=== PATIENT | female | born 1975 | race Caucasian/White ===

== ENCOUNTER 2024-07-04 13:00 | Outpatient (RCR) | payer MEDICAID, SELFPAY ==
--- NOTE | 2024-06-20 14:40 | PTNOTE_ITS ---
PT OP Initial Eval Patient Information Outpatient Physical Therapy Treatment Date: 06/20/24 Visit Reasons: Left wrist surgery Medical Diagnosis: M18.12 G56.02 M79.642 M25.642 Treatment Dx #1: L thumb pain Treatment Dx #2: Dec L thumb ROM Start of Care: 06/20/24 Date of Onset: 09/09/23 DOS Smoking Status Smoking Status: Current every day smoker Cessation Counseling Provided: CORY was advised that quitting smoking is the single most important factor to protect the health of themselves and their family. Discussed the benefits of quitting smoking with patient. Encouraged patient to quit smoking and provided Cessation assistance materials and resources. Tobacco Use: Cigarette Years smoked: 30 Are you interested in quitting?: No Would you like additional Smoking Cessation Counseling?: No Initial Assessment Subjective: Pt is 48 yr old female s/p L CTS and apparent 1st CMC reconstruction presents with wrist splint on and reports she doesn't move the thumb much due to pain. 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 PMH: allergies Pt goal: to move the thumb and close the hand all the way Objective: Thumb AROM: Flexion: 30 deg Extension: -20 deg Wrist AROM: Flexion: 40 deg Extension: 40 deg Strength: NT Flexo Folder Gluer Operator strength: Joshua L: 20 lbs, R: 80 lbs Fist AROM: full Observation: edema of incision site and moderate TTP Assessment: Pt presents with limited L thumb and digit AROM and physical geographer strength. Pt requires skilled therapy in order to meet goals and has fair rehab potential due to high tissue irritability. Short Term and Multifocal Button Grinder Goals 1. Ind with HEP 2. Improved thumb AROM to full 3. Improved physical geographer strength to at least 35 lbs on L 4. Pt will tolerate work duties with <=4/10 L thumb pain Treatment Plan ?1. Manual therapy ? 2. Therex ? 3. Modalities as indicated, moist heat, ice, estim Frequency and Duration: 1-2x a week for 12 sessions plus evaluation Certification Dates: 06/20/24 to 09/16/24 Procedure Charges OP PT Eval Mod Complex 30 minutes: Yes
--- NOTE | 2024-06-27 09:38 | PT.ODAYNRPT ---
PT Outpatient Daily Note OP Daily Note Outpatient Physical Therapy Treatment Date: 06/27/24 Visit Reasons: Left wrist surgery Subjective: Pt reports low thumb ROM and pain Objective: See F/S for therex P x7' L hand Assessment: Weakness and pain limit L thumb ROM Plan: Continue per POC Length of Time (minutes) of Treatment: 30 Minutes Procedure Charges Therapeutic Exercise 30 minutes: Yes
--- NOTE | 2024-07-04 13:24 | PT.ODAYNRPT ---
PT Outpatient Daily Note OP Daily Note Outpatient Physical Therapy Treatment Date: 07/04/24 Visit Reasons: Left wrist surgery Subjective: Pt reports L wrist continues to be painful and tender. Objective: Please see flow sheet for ther ex list. Assessment: Pt demonstrates poor activity tolerance due to pain response. Attempted STM scar mobs but pt TTP with c/o high pain. Plan: Continue with POC. Length of Time (minutes) of Treatment: 30 Minutes Procedure Charges Therapeutic Exercise 30 minutes: Yes
== END 2024-07-12 23:59 | disposition home or self-care (01) ==
LOC: CPTX 13:00
PROVIDERS: PCP Orthopaedic Surgery; Referring Provider Orthopaedic Surgery; Visit Provider Orthopaedic Surgery
DX: M79.645 Pain in left finger(s) (principal); M25.642 Stiffness of left hand, not elsewhere classified; Z98.890 Other specified postprocedural states
CPT/HCPCS: 97110; 97162

== ENCOUNTER 2024-08-03 02:23 | Emergency (ER) | payer MEDICAID, SELFPAY ==
[2024-08-03 02:24] VITALS: BMI 27.1
[2024-08-03 02:49] VITALS: BP 118/56; PULSE 95; RESP 18; TEMP 36.4; O2SAT 96
--- NOTE | 2024-08-03 03:03 | XR_ITS ---
Examination: CT abdomen and pelvis without contrast. Coronal 3-D reconstructions. Sagittal 2-D reconstructions. Date and time of exam:August 03, 2024 0336 hrs. Indications: Onset right-sided flank pain today, history kidney stones on CT stone study 03/24/2023 CTDI: vol (mGy): 9.65 DLP: (mGycm): 572 Technique: Axial images of the abdomen have been obtained, 3 mm slice thickness Intravenous contrast material has not been administered. Low dose protocols were performed. One or more of the following dose reduction techniques were used; automated exposure control, adjustment of the mA and/or KV according to patient size, use of iterative reconstruction technique. Findings: No focal liver or splenic lesions Absent gallbladder No pancreatic mass 10 mm upper pole right renal calculus, 2 mm 1 mm lower pole left renal calculi No hydronephrosis or ureteral calculi Aorta normal size No bowel obstruction Normal appendix Retroverted uterus with irregular fundal margins Advanced degenerative disc disease L5-S1 Impression: Bilateral nonobstructing renal calculi No hydronephrosis Normal appendix Recommend pelvic sonography to assess irregular uterine fundal margins
--- NOTE | 2024-08-03 03:04 | PD.EDRME ---
Rapid Medical Screening Exam RME Arrival date/time: 08/03/24 02:23 49-year-old female with past medical history of diverticulosis and kidney stones presents emergency department complaining of right flank pain for 5 days. Chief Complaint: Back Pain/Injury Time Seen by Provider: 08/03/24 02:53 Vital signs: Vital Signs Temperature 97.6 F 08/03/24 02:49 Pulse Rate 95 08/03/24 02:49 Respiratory Rate 18 08/03/24 02:49 Blood Pressure 118/56 L 08/03/24 02:49 Pulse Oximetry (%) 96 08/03/24 02:49 Oxygen Delivery Method Room Air 08/03/24 02:49 Vital signs reviewed by provider: Yes
[2024-08-03] MEDS: KETOROLAC INJ 60 MG/2 ML VIAL 30 MG IM (03:17)
[2024-08-03 04:21] LABS: Alanine Aminotransferase 29 U/L (10-49); Albumin, Serum 4.6 gm/dL (3.5-5.0); Albumin/Globulin Ratio 1.5 (1.2-2.2); Alkaline Phosphatase 80 U/L (46-116); Anion Gap 7 (7-16); Aspartate Amino Transferase 23 U/L (0-34); BUN/Creatinine Ratio 13 Ratio (12-20); Bilirubin,Total 0.7 mg/dL (0.3-1.2); Blood Urea Nitrogen 13 mg/dL (9-23); Calcium 9.9 mg/dL (8.3-10.6); Calcium (Corrected) 9.9 mg/dL (8.5-10.1); Carbon Dioxide 27.8 mMol/L (20.0-31.0); Chloride 106 mMol/L (98-107); Globulin 3.1 gm/dL (2.3-3.5); Glucose 103 mg/dL (74-106); Lipase 26 U/L (12-53); Osmolality,Calculated 281 (275-295); Potassium 3.6 mMol/L (3.4-5.1); Sodium 141 mMol/L (136-145); Total Protein 7.7 gm/dL (5.7-8.2); eGFR > 60 See Note
[2024-08-03 04:37] LABS: Basophils % (Auto) 0 % (0-2.5); Eosinophils # (Auto) 0.3 Thou/mm3 (0.0-0.5); Eosinophils % (Auto) 3 % (0-10); Hematocrit 44.1 % (36.0-46.0); Hemoglobin 14.5 g/dL (12.0-16.0); Immature Granulocytes % (Auto) 0 % (0-0); Immature Granulocytes Auto 0.02 Thou/mm3 (0.00-0.00); Lymphocytes % (Auto) 23 % (10-50); Mean Corpuscular HGB Conc 32.9 g/dl (31.0-37.0); Mean Corpuscular Hemoglobin 30.7 pg (25.0-35.0); Mean Corpuscular Volume 93 fL (80-100); Monocytes # (Auto) 0.7 Thou/mm3 (0.0-0.8); Monocytes % (Auto) 8 % (0-12); Neutrophils # (Auto) 5.6 Thou/mm3 (1.8-7.7); Neutrophils % (Auto) 66 % (37-80); Nucleated Red Blood Cell % 0 /100 WBC (0); Platelet Count 397 Thou/mm3 (140-440); RDW Standard Deviation 47.6 fL (36.4-46.3); Red Blood Count 4.73 Miln/mm3 (4.00-5.20); White Blood Count 8.5 Thou/mm3 (3.6-11.0)
--- NOTE | 2024-08-03 04:40 | PRELIM_ITS ---
CT scan of the abdomen and pelvis without intravenous contrast (axial sections with sagittal and abiel nal reformats). August 03, 2024 0336 hours Clinical History: Right flank pain Comparison: NoneFindi ngs:Gallbladder is surgically absent. The unenhanced liver, spleen, pancreas and adrenals are unrema rkable. There is a 10 mm nonobstructive right upper pole nephrolith. There are few tiny subcentimet er nonobstructive left lower pole nephroliths. The left kidney appears slightly malrotated. Urinary bladder is of normal partially filled configuration. Uterus is retroverted. Minimal nonspecific ca lcification noted along the fundus of the uterus. There is underdistention of the stomach which limi ts evaluation. There is no bowel obstruction. Appendix is normal. There is no free intraperitoneal air or fluid. There is no abdominal or pelvic lymphadenopathy. There is a tiny fat-containing ana umbilical hernia. Visualized lung bases are clear. There is no acute osseous abnormality. There is degenerative change in the spine, SI joints and around the symphysis pubis.Impression:1. Nonobstruct jessa nephroliths bilaterally. No hydroureteronephrosis.2. No bowel obstruction. Normal appendix. Rep ort Electronically Signed By: Christopher Long 08/03/2024 4:39:38 AM [EST]
[2024-08-03 04:41] LABS: HCG,Qualitative Serum Negative
[2024-08-03 05:55] LABS: Collection Type, Urine Clean Catch
[2024-08-03 06:22] LABS: Amphetamine/Methamp Scrn,U Positive (Negative); Bacteria,Urine 1+; Barbiturate Screen,Urine Negative (Negative); Benzodiazepines Screen,Urine Negative (Negative); Benzoylecgonine Screen, Ur Negative (Negative); Bilirubin,Urine Negative (Negative); Blood,Urine 1+ (Negative); Budding Yeast,Urine Present; Clarity,Urine Hazy (Clear/Hazy); Color,Urine Yellow (Lt Yel-Yel); Culture Indicated,Urine Yes; Fentanyl Screen,Urine Negative (Negative); Glucose, Urine Negative (Negative); Ketones,Urine Negative (Negative); Leukocyte Esterase,Urine Positive (Negative); Nitrite,Urine Negative (Negative); Opiate Screen,Urine Negative (Negative); Protein,Urine 1+ (Neg - Trace); RBC,Urine 27 /hpf (0-3); Squamous Epithelial Cell,Urine 5 /hpf (0-5); THC Screen,Urine Negative (Negative); WBC,Urine 38 /hpf (0-5)
--- NOTE | 2024-08-03 06:36 | PD.EDABDPN ---
ED Abdominal Pain RME/HPI General Chief Complaint: Back Pain/Injury Stated complaint: RT FLANK PAIN/ HX OF KIDNEY STONES Time seen by provider: 08/03/24 02:53 Arrival date/time: 08/03/24 02:23 RME / HPI RME / HPI narrative: 08/03/24 02:23 49-year-old female with past medical history of diverticulosis and kidney stones presents emergency department complaining of right flank pain for 5 days. Related Data Home Medications ?Medication ?Instructions ?Recorded ?Confirmed hydrocodone 10 mg-acetaminophen 1 tab PO BID 08/21/21 08/21/21 325 mg tablet ipratropium 20 mcg-albuterol 100 1 puff inhalation Q6H 08/21/21 08/21/21 mcg/actuation mist for inhalation (Combivent Respimat) ketorolac 10 mg tablet 10 mg PO Q6HR 08/21/21 08/21/21 latanoprost 0.005 % eye drops 1 drp ophthalmic (eye) HS 08/21/21 08/21/21 magnesium oxide 400 mg (241.3 mg 200 mg PO BID 08/21/21 08/21/21 magnesium) tablet meloxicam 15 mg tablet 15 mg PO QDAY 08/21/21 08/21/21 ondansetron 4 mg disintegrating 4 mg PO Q4H 08/21/21 08/21/21 tablet tamsulosin 0.4 mg capsule 0.4 mg PO QDAY 08/21/21 08/21/21 tizanidine 2 mg tablet 2 mg PO HS 08/21/21 08/21/21 Previous Rx's ?Medication ?Instructions ?Recorded diazepam 5 mg tablet 5 mg PO TID PRN muscle spasm #9 08/21/21 tabs doxycycline hyclate 100 mg capsule 100 mg PO BID #14 caps 05/22/22 ondansetron 4 mg disintegrating 4 mg PO Q8H PRN nausea and 05/22/22 tablet vomiting #10 tabs Allergies Allergy/AdvReac Type Severity Reaction Status Date / Time amoxicillin Allergy Severe Swelling Verified 04/25/24 12:36 of Lip/Tongue/Throat erythromycin base Allergy Severe Swelling Verified 04/25/24 12:36 of Lip/Tongue/Throat Penicillins Allergy Severe Swelling Verified 04/25/24 12:36 of Lip/Tongue/Throat Course Orders Category Date Time Status CT abdomen pelvis wo con Stat Exams 08/03/24 03:03 Taken CBC Stat Lab 08/03/24 03:10 Completed CMP [Comprehensive Metabolic Panel] Stat Lab 08/03/24 03:10 Completed Drug Screen,Urine Stat Lab 08/03/24 05:45 Completed HCG,Qualitative Serum Stat Lab 08/03/24 03:10 Completed Lipase Stat Lab 08/03/24 03:10 Completed Urinalysis, C/S if Indicated Stat Lab 08/03/24 05:45 Completed Urine Culture Stat Lab 08/03/24 05:45 Received Ketorolac Inj [Toradol Inj] Med 08/03/24 03:03 Discontinued 30 mg IM X1 ONE Vital Signs Vital signs: Vital Signs Temperature 97.6 F 08/03/24 02:49 Pulse Rate 95 08/03/24 02:49 Respiratory Rate 18 08/03/24 02:49 Blood Pressure 118/56 L 08/03/24 02:49 Pulse Oximetry (%) 96 08/03/24 02:49 Oxygen Delivery Method Room Air 08/03/24 02:49 Abdominal Pain MDM Medications / Prescriptions Medication administrations:: Medication Administration History Discontinued Medications Ketorolac Tromethamine (Ketorolac Inj 60 Mg/2 Ml Vial) 30 mg IM X1 ONE Stop: 08/03/24 03:04 Last Admin: 08/03/24 03:17 Dose: 30 mg Documented By: DANIELLA Discharge Plan Prescriptions/Referrals Prescriptions/Med Rec: No Action latanoprost 0.005 % drops 1 drp OPHTHALMIC (EYE) HS Patient Comments: INSTILL ONE DROP IN EACH EYE AT BEDTIME Rx Instructions: 1 drop in each eye tizanidine 2 mg tablet 2 mg PO HS Patient Comments: TAKE 1 TO 2 TABLETS BY MOUTH EVERY DAY AT BED TIME Rx Instructions: take 1-2 tablets meloxicam 15 mg tablet 15 mg PO QDAY Patient Comments: TAKE ONE TABLET BY MOUTH EVERY DAY WITH FOOD FOR ARTHRITIS FOR INFLAMMATION hydrocodone-acetaminophen 10-325 mg tablet 1 tab PO BID Patient Comments: TAKE ONE TABLET BY MOUTH TWICE DAILY NEEDED FOR PAIN ketorolac 10 mg tablet 10 mg PO Q6HR Patient Comments: TAKE ONE TABLET BY MOUTH EVERY 6 HOURS NEEDED FOR 5 DAYS magnesium oxide 400 mg (241.3 mg magnesium) tablet 200 mg PO BID Patient Comments: TAKE 1/2 TABLET BY MOUTH TWICE DAILY Rx Instructions: take 1/2 tablet twice a day tamsulosin 0.4 mg capsule 0.4 mg PO QDAY Patient Comments: TAKE ONE CAPSULE BY MOUTH EVERY DAY FOR PROSTATE ondansetron 4 mg tablet,disintegrating 4 mg PO Q4H Rx Instructions: every 4-6 hours Combivent Respimat 20-100 mcg/actuation mist 1 puff INHALATION Q6H diazepam 5 mg tablet 5 mg PO TID PRN (Reason: muscle spasm) Qty: 9 0RF doxycycline hyclate 100 mg capsule 100 mg PO BID Qty: 14 0RF ondansetron 4 mg tablet,disintegrating 4 mg PO Q8H PRN (Reason: nausea and vomiting) Qty: 10 0RF Referrals: SQ Lane Carcamo MD [Primary Care Provider] - In 1 week Patient/Caregiver Discharge Instructions Print Language: Zimbabwean
--- NOTE | 2024-08-03 06:41 | EDNOTE_ITS ---
ED Back Injury Pain RME/HPI General Chief Complaint: Back Pain/Injury Stated Complaint: RT FLANK PAIN/ HX OF KIDNEY STONES Time Seen by Provider: 08/03/24 02:53 Arrival date/time: 08/03/24 02:23 49-year-old female with history of kidney stones and methamphetamine abuse presents emergency department complains of back pain there are no other associated symptoms or aggravating factors no other modifying factors, patient denies taking medication before coming to ER today Limitations: no limitations RME / HPI RME / HPI Narrative: 08/03/24 02:23 49-year-old female with past medical history of diverticulosis and kidney stones presents emergency department complaining of right flank pain for 5 days. Related Data Home Medications ?Medication ?Instructions ?Recorded ?Confirmed hydrocodone 10 mg-acetaminophen 1 tab PO BID 08/21/21 08/21/21 325 mg tablet ipratropium 20 mcg-albuterol 100 1 puff inhalation Q6H 08/21/21 08/21/21 mcg/actuation mist for inhalation (Combivent Respimat) ketorolac 10 mg tablet 10 mg PO Q6HR 08/21/21 08/21/21 latanoprost 0.005 % eye drops 1 drp ophthalmic (eye) HS 08/21/21 08/21/21 magnesium oxide 400 mg (241.3 mg 200 mg PO BID 08/21/21 08/21/21 magnesium) tablet meloxicam 15 mg tablet 15 mg PO QDAY 08/21/21 08/21/21 ondansetron 4 mg disintegrating 4 mg PO Q4H 08/21/21 08/21/21 tablet tamsulosin 0.4 mg capsule 0.4 mg PO QDAY 08/21/21 08/21/21 tizanidine 2 mg tablet 2 mg PO HS 08/21/21 08/21/21 Previous Rx's ?Medication ?Instructions ?Recorded diazepam 5 mg tablet 5 mg PO TID PRN muscle spasm #9 08/21/21 tabs doxycycline hyclate 100 mg capsule 100 mg PO BID #14 caps 05/22/22 ondansetron 4 mg disintegrating 4 mg PO Q8H PRN nausea and 05/22/22 tablet vomiting #10 tabs ciprofloxacin HCl 500 mg tablet 500 mg PO BID 7 days #14 tabs 08/03/24 fluconazole 150 mg tablet 150 mg PO Q3D 2 doses #2 tabs 08/03/24 ibuprofen 800 mg tablet 800 mg PO TID PRN pain #30 tabs 08/03/24 Allergies Allergy/AdvReac Type Severity Reaction Status Date / Time amoxicillin Allergy Severe Swelling Verified 04/25/24 12:36 of Lip/Tongue/Throat erythromycin base Allergy Severe Swelling Verified 04/25/24 12:36 of Lip/Tongue/Throat Penicillins Allergy Severe Swelling Verified 04/25/24 12:36 of Lip/Tongue/Throat Review of Systems Review of Systems Systems Reviewed: All systems reviewed, normal except as documented Constitutional Constitutional: Reports system reviewed and no additional complaints, except as documented, Denies fever(s) and Denies headache(s) Eyes Eyes: Reports system reviewed and no additional complaints, except as documented and Denies blurry vision ENT Ears, Nose, Mouth, and Throat: Reports system reviewed and no additional complaints, except as documented, Denies headache(s), Denies nasal congestion and Denies nasal discharge Cardiovascular Cardiovascular: Reports system reviewed and no additional complaints, except as documented, Denies chest pain and Denies dyspnea Respiratory Respiratory: Reports system reviewed and no additional complaints, except as documented, Denies chest congestion, Denies cough and Denies dyspnea Gastrointestinal Gastrointestinal: Reports system reviewed and no additional complaints, except as documented and Denies abdominal pain Musculoskeletal Musculoskeletal: Reports system reviewed and no additional complaints, except as documented and Reports back pain Integumentary/Breasts Skin/Breast: Reports system reviewed and no additional complaints, except as documented and Denies rash Neurologic Neurologic: Reports system reviewed and no additional complaints, except as documented, Reports as per HPI and Denies headache(s) Past Medical History Past Medical History NEUROLOGIC: Positive Neurological Disorders, Peripheral Neuropathy and Migraine; Negative Seizures CARDIAC: Positive Hypertension; Negative Cardiac Disorders or Congestive Heart Failure RESPIRATORY: Positive Asthma; Negative Chronic Obstructive Pulmonary Disease (COPD), Tuberculosis or Sleep Apnea GASTROINTESTINAL: Positive Gastrointestinal Disorders, Delatorre's Esophagus and Gastroesophageal Reflux Disease; Negative Hepatitis GENITOURINARY: Positive Genitourinary Disorders and Kidney Stones; Negative Renal Disease REPRODUCTIVE: Positive Previous Pregnancies MUSCULOSKELETAL: Positive Musculoskeletal Disorders, Arthritis and Degenerative Disk Disease; Negative Carpal Tunnel Syndrome ENT: Positive Glaucoma and Ear Infection ENDOCRINE: Negative Endocrine Disorders, Diabetes Mellitus Type 1 or Diabetes Mellitus Type 2 HEMATOLOGIC: Positive Blood Disorders and Anemia; Negative Sickle Cell Disease or Clotting Problems PSYCHO/SOCIAL: Positive Depression, Anxiety and Post Traumatic Stress Disorder OTHER HISTORY: Positive Chicken Pox; Negative Autoimmune Disease, Falls, Blood Transfusions, Blood Transfusion Reaction, Anesthesia Reactions, MRSA or Cancer Family History FAMILY HISTORY: Positive Family Respiratory Disorders, Family Cardiac Disorders, Family Gastrointestinal Problems, Family Cancer and Family Surgery; Negative Family Psychiatric Problems or Family Anesthesia Reaction Surgical History SURGICAL: Positive Ear Surgery, Tympanostomy Tube and Tubal Ligation; Negative Cardiac Surgery, Endocrine Surgery or Abdominal Surgery Social History SMOKING STATUS: Current some day smoker SUBSTANCE USE: former substance user and crack/cocaine (former 10 years ago) ED Exam General Limitations: Present no limitations General appearance: Present alert and in no apparent distress Head Head exam: Present atraumatic, normocephalic and normal inspection Eye Eye exam: Present normal appearance, PERRL and EOMI; Absent conjunctival injection ENT ENT exam: Present normal exam, normal oropharynx and mucous membranes moist Neck Neck exam: Present normal inspection, full ROM and trachea midline Chest Chest inspection: Present normal inspection and symmetric chest wall rise Respiratory Respiratory exam: Present normal lung sounds bilaterally; Absent respiratory distress, wheezes, stridor or accessory muscle use Cardiovascular Cardiovascular exam: Present regular rate, normal rhythm and normal heart sounds; Absent bradycardia, tachycardia or irregular rhythm Abdominal Exam Abdominal exam: Present soft and normal bowel sounds; Absent distention, tenderness, guarding, rebound or rigidity Extremities Exam Extremities exam: Present normal inspection and full ROM Back Exam Back exam: Present normal inspection and full ROM Neurological Exam Neurological exam: Present alert, oriented X3, CN II-XII intact, normal gait and reflexes normal; Absent motor sensory deficit Psychiatric Psychiatric exam: Present normal affect and normal mood Skin Skin exam: Present warm, dry, intact and normal color Course Quality Measures none Orders Category Date Time Status CT abdomen pelvis wo con Stat Exams 08/03/24 03:03 Taken CBC Stat Lab 08/03/24 03:10 Completed CMP [Comprehensive Metabolic Panel] Stat Lab 08/03/24 03:10 Completed Drug Screen,Urine Stat Lab 08/03/24 05:45 Completed HCG,Qualitative Serum Stat Lab 08/03/24 03:10 Completed Lipase Stat Lab 08/03/24 03:10 Completed Urinalysis, C/S if Indicated Stat Lab 08/03/24 05:45 Completed Urine Culture Stat Lab 08/03/24 05:45 Received Ketorolac Inj [Toradol Inj] Med 08/03/24 03:03 Discontinued 30 mg IM X1 ONE Vital Signs Vital signs: Vital Signs Temperature 97.6 F 08/03/24 02:49 Pulse Rate 95 08/03/24 02:49 Respiratory Rate 18 08/03/24 02:49 Blood Pressure 118/56 L 08/03/24 02:49 Pulse Oximetry (%) 96 08/03/24 02:49 Oxygen Delivery Method Room Air 08/03/24 02:49 o2 sat 96% r/a wnl Back Pain / Injury MDM Narrative MDM Narrative:: 49-year-old female with history of kidney stones and methamphetamine abuse presents emerged department complains of back pain there are no other associated symptoms or aggravating factors no other modifying factors, patient denies taking medication before coming to ER today On exam patient well-appearing patient does not appear ill or toxic in no acute distress Reviewed patient's lab work and CT scan Patient has no leukocytosis no ureteral calculi Urinalysis consistent with UTI and yeast infection Patient discharged home in no distress to follow-up with primary care doctor in the next 24 to 48 hours and for any worsening symptoms to return to the ER immediately Patient data External records reviewed:: [facility] previous records Clinical information provided by:: patient Social determinants that could affect healthcare access:: none Patient has the following chronic illnesses:: none How is presenting disease/condition affected by chronic disease/condition?: no chronic disease Evaluation data The following diagnostics were reviewed and interpreted by me:: lab results and radiology exam(s) Lab and/or radiology exams considered but not ordered:: labs and rad obtained Interpretation Summary: labs and rad obtained Medications / Prescriptions Medications or Prescriptions considered but not ordered:: given Medication administrations:: Medication Administration History Discontinued Medications Ketorolac Tromethamine (Ketorolac Inj 60 Mg/2 Ml Vial) 30 mg IM X1 ONE Stop: 08/03/24 03:04 Last Admin: 08/03/24 03:17 Dose: 30 mg Documented By: KF given Consultations Consultation(s) initiated? (list below): No Diagnosis Differential diagnosis back pain/injury: lumbar radiculopathy, sciatica, strain of lumbar region, renal colic and pyelonephritis Most likely diagnosis given after review of the tests above:: uti, yeast infection Admission Indicated Admission indicated?: not indicated Admission Request Was there a request for admission?: No Disposition Plan Disposition Plan: Discharge Discharge Attestation Discharge Attestation: The patient and all family members were given an opportunity to ask questions and understood the discharge instructions. Discharge instructions specifically effects, indications for sooner follow up or return to the emergency department, and the expected course of current diagnosis. Patient condition: Stable Discharge Plan Plan Patient Disposition: HOME (Self Care) Disposition Comment: Stable Prescriptions/Referrals Prescriptions/Med Rec: New ibuprofen 800 mg tablet 800 mg PO TID PRN (Reason: pain) Qty: 30 0RF ciprofloxacin HCl 500 mg tablet 500 mg PO BID 7 Days Qty: 14 0RF fluconazole 150 mg tablet 150 mg PO Q3D Qty: 2 0RF No Action latanoprost 0.005 % drops 1 drp OPHTHALMIC (EYE) HS Patient Comments: INSTILL ONE DROP IN EACH EYE AT BEDTIME Rx Instructions: 1 drop in each eye tizanidine 2 mg tablet 2 mg PO HS Patient Comments: TAKE 1 TO 2 TABLETS BY MOUTH EVERY DAY AT BED TIME Rx Instructions: take 1-2 tablets meloxicam 15 mg tablet 15 mg PO QDAY Patient Comments: TAKE ONE TABLET BY MOUTH EVERY DAY WITH FOOD FOR ARTHRITIS FOR INFLAMMATION hydrocodone-acetaminophen 10-325 mg tablet 1 tab PO BID Patient Comments: TAKE ONE TABLET BY MOUTH TWICE DAILY NEEDED FOR PAIN ketorolac 10 mg tablet 10 mg PO Q6HR Patient Comments: TAKE ONE TABLET BY MOUTH EVERY 6 HOURS NEEDED FOR 5 DAYS magnesium oxide 400 mg (241.3 mg magnesium) tablet 200 mg PO BID Patient Comments: TAKE 1/2 TABLET BY MOUTH TWICE DAILY Rx Instructions: take 1/2 tablet twice a day tamsulosin 0.4 mg capsule 0.4 mg PO QDAY Patient Comments: TAKE ONE CAPSULE BY MOUTH EVERY DAY FOR PROSTATE ondansetron 4 mg tablet,disintegrating 4 mg PO Q4H Rx Instructions: every 4-6 hours Combivent Respimat 20-100 mcg/actuation mist 1 puff INHALATION Q6H diazepam 5 mg tablet 5 mg PO TID PRN (Reason: muscle spasm) Qty: 9 0RF doxycycline hyclate 100 mg capsule 100 mg PO BID Qty: 14 0RF ondansetron 4 mg tablet,disintegrating 4 mg PO Q8H PRN (Reason: nausea and vomiting) Qty: 10 0RF Referrals: Lane Linda MD [Primary Care Provider] - In 1 week Problem List Clinical Impression: UTI (urinary tract infection), Yeast infection, Amphetamine abuse Patient/Caregiver Discharge Instructions Education Materials: When to Use Antibiotics Additional Instructions: Please follow up with your primary care doctor in the next 24-48hrs for any worsening symptoms return here immediately Print Language: [place] Islander Stand Alone Forms: Carmen Award Info., Patient Portal Info Letter PA/SECTIONIZER Supervising Physician PA/SECTIONIZER Supervising Physician: Dr ness
== END 2024-08-03 07:13 | disposition home or self-care (01) ==
PROVIDERS: Emergency Provider Emergency Medicine; PCP Family Medicine
DX: N39.0 Urinary tract infection, site not specified (principal); B37.9 Candidiasis, unspecified; F15.10 Other stimulant abuse, uncomplicated; Z87.442 Personal history of urinary calculi
CPT/HCPCS: 36415; 74176; 80053; 80307; 81001; 83690; 84703; 85025; 87086; 96372; 99284; J1885

== ENCOUNTER 2024-08-08 09:00 | Outpatient (RCR) | payer MEDICAID, SELFPAY ==
--- NOTE | 2024-07-14 08:53 | PT.ODAYNRPT ---
PT Outpatient Daily Note OP Daily Note Outpatient Physical Therapy Treatment Date: 07/14/24 Visit Reasons: Left wrist surgery Subjective: Pt reports L hand is the same, continues to be really painful to use and tender to touch. Objective: Please see flow sheet for ther ex list. Assessment: Progress in clinic slow due to pt pain response. Pt TTP along 5th digit and near incision site. Plan: Continue with POC. Length of Time (minutes) of Treatment: 30 Minutes Procedure Charges Therapeutic Exercise 30 minutes: Yes
--- NOTE | 2024-07-19 09:55 | PT.ODAYNRPT ---
PT Outpatient Daily Note OP Daily Note Outpatient Physical Therapy Treatment Date: 07/19/24 Visit Reasons: Left wrist surgery Subjective: Continued L thumb pain and sensitivity Objective: See F/S for therex Assessment: Pt has hypersensitivity of L thumb region to light touch. Improving PROM of thumb but pain limits extension ROM. Plan: Pt will be out of town for a week or two and will call when she returns Length of Time (minutes) of Treatment: 30 Minutes Procedure Charges Therapeutic Exercise 30 minutes: Yes
--- NOTE | 2024-08-03 11:39 | PT.ODAYNRPT ---
PT Outpatient Daily Note OP Daily Note Outpatient Physical Therapy Treatment Date: 08/03/24 Visit Reasons: Left wrist surgery Subjective: Pt c/o flank pain and fatigue today attributed to kidney pain. Less L thumb pain lately. Objective: See F/S for therex Assessment: Limited thumb flexion and unable to touch 5th digit Plan: Continue per POC Length of Time (minutes) of Treatment: 30 Minutes Procedure Charges Therapeutic Exercise 30 minutes: Yes
--- NOTE | 2024-08-08 10:43 | PT.ODAYNRPT ---
PT Outpatient Daily Note OP Daily Note Outpatient Physical Therapy Treatment Date: 08/08/24 Visit Reasons: Left wrist surgery Subjective: Same to less L thumb pain lately. Objective: See F/S for therex Assessment: Limited thumb flexion and unable to touch 5th digit Plan: Continue per POC Length of Time (minutes) of Treatment: 30 Minutes Procedure Charges Therapeutic Exercise 30 minutes: Yes
== END 2024-08-12 23:59 | disposition home or self-care (01) ==
LOC: CPTX 09:00
PROVIDERS: PCP Orthopaedic Surgery; Referring Provider Orthopaedic Surgery; Visit Provider Orthopaedic Surgery
DX: M79.645 Pain in left finger(s) (principal); M79.642 Pain in left hand; M25.642 Stiffness of left hand, not elsewhere classified; G56.02 Carpal tunnel syndrome, left upper limb; M18.12 Unilateral primary osteoarthritis of first carpometacarpal joint, left hand
CPT/HCPCS: 97110

== ENCOUNTER 2024-09-06 10:00 | Outpatient (RCR) | payer MEDICAID, SELFPAY ==
--- NOTE | 2024-08-31 09:36 | PT.ODAYNRPT ---
PT Outpatient Daily Note OP Daily Note Outpatient Physical Therapy Treatment Date: 08/31/24 Visit Reasons: LEFT WRIST Subjective: Pt reports tenderness of L thumb, mentioned she is trying to wean off the wrist brace. Objective: Please see flow sheet for ther ex list. 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 Plan: Continue with POC. Length of Time (minutes) of Treatment: 30 Minutes Procedure Charges Therapeutic Exercise 30 minutes: Yes
--- NOTE | 2024-09-06 09:57 | PT.ODAYNRPT ---
PT Outpatient Daily Note OP Daily Note Outpatient Physical Therapy Treatment Date: 09/06/24 Visit Reasons: LEFT WRIST Subjective: Pt reports thumb continues to be painful. Objective: Please see flow sheet for ther ex list. Assessment: Progress with gripping and hand strength slow due to pt pain response. Plan: Continue with POC. Length of Time (minutes) of Treatment: 30 Minutes Procedure Charges Therapeutic Exercise 30 minutes: Yes
--- NOTE | 2024-09-27 10:41 | PTNOTE_ITS ---
PT OP Progress/Discharge Note Date of Service: 09/27/24 Progress Note/DC Note Progress Note/Discharge Note: DC Note Patient Information Visit Reasons: LEFT WRIST Service Continue Service or Discharge: Discharge Discharge Date: 09/27/24 Status Assessment: Pt has attended the eval and 8 Rx visits with slow progress with pain goals. 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 She has good function with L hand in the clinic and with gripping. Moderate TTP of L thumb with MT and limited flexion ROM. Pt didn't show up for her last visit to be reassessed and then authorization . Plan: POC and authorization a few days ago and she will D/C with [facility]
== END 2024-09-09 23:59 | disposition home or self-care (01) ==
LOC: CPTX 10:00
PROVIDERS: PCP Orthopaedic Surgery; Referring Provider Orthopaedic Surgery; Visit Provider Orthopaedic Surgery
DX: M79.645 Pain in left finger(s) (principal); M25.642 Stiffness of left hand, not elsewhere classified; Z98.890 Other specified postprocedural states; M18.12 Unilateral primary osteoarthritis of first carpometacarpal joint, left hand
CPT/HCPCS: 97110

== ENCOUNTER 2024-09-14 09:21 | Emergency (ER) | payer MEDICAID, SELFPAY ==
[2024-09-14 09:31] VITALS: BP 112/73; PULSE 113; RESP 24; TEMP 36.6; O2SAT 100; BMI 25.7
--- NOTE | 2024-09-14 09:31 | PD.EDSOB ---
ED SOB =RME/HPI General Chief Complaint: Shortness of Breath/Dyspnea Stated Complaint: SOB X 1 WK Time Seen by Provider: 09/14/24 09:30 Arrival date/time: 09/14/24 09:21 RME / HPI RME / HPI Narrative: DR. LARSEN MAIN ED EVALUATION: This section includes all my notes and documentations, including HPI, PE, and ED course.? John Larsen MD HPI: 49 year old female with past medical history significant for COPD, cigarettes' smoker, presents to the Emergency Department with complaint of shortness of breath onset 2 weeks. Symptoms are moderate. Associated symptoms include a cough, worse than usual, increased productive cough, and increased purulence. And chest pain with coughing in the past few days. No other complaints reported. ROS: All negative except as documented in HPI. Physical Exam: General:? Alert and oriented.? Hacking cough noted. Eyes:? Conjunctivae and lids clear. ENT:? No nasal congestion.? Pharynx normal. TM normal bilaterally. Neck:? Supple. Heart:? RRR. Lungs:? In respiratory distress.? Poor air movement with bilateral rhonchi. Abdomen:? Soft and nontender.? Legs:? No clubbing, cyanosis, edema. Skin:? Warm and dry.? Neuro:? Alert and oriented X 3.? I reviewed all diagnostic test results. My interpretation of the EKG is?sinus rhythm with no acute ST?T changes. My interpretation of the chest x-ray is increased bronchial markings. COVID/influenza negative. At this point, diagnoses include lower respiratory infection. Treatment here included prednisone and Benadryl and Xopenex neb treatment and two Tylenol #3. Significant improvement noted. Recommended a trial of outpatient treatment. Based on my best medical judgment, made decision no further evaluation or treatment indicated at this time.? Patient understands and agrees to the discharge instructions customized and printed, see below. Discharge instructions from Dr. Larsen: --No physical exertion for 3 days to help rest the lungs. ?No smoking or exposure to smoking or pets or dust or cold air. --Zithromax to kill the germs causing the bronchitis. --Prednisone to help decrease the swelling in the airways. --Tylenol with codeine for severe cough for severe pain. --Albuterol 2 puffs every 4-6 hours for today and tomorrow to help keep the airways open. Then as needed for cough or shortness of breath. --See a private doctor next week for recheck. --Seek immediate medical care with worsening or with any concerns. John Larsen MD Related Data Home Medications ?Medication ?Instructions ?Recorded ?Confirmed hydrocodone 10 mg-acetaminophen 1 tab PO BID 08/21/21 08/21/21 325 mg tablet ipratropium 20 mcg-albuterol 100 1 puff inhalation Q6H 08/21/21 08/21/21 mcg/actuation mist for inhalation (Combivent Respimat) ketorolac 10 mg tablet 10 mg PO Q6HR 08/21/21 08/21/21 latanoprost 0.005 % eye drops 1 drp ophthalmic (eye) HS 08/21/21 08/21/21 magnesium oxide 400 mg (241.3 mg 200 mg PO BID 08/21/21 08/21/21 magnesium) tablet meloxicam 15 mg tablet 15 mg PO QDAY 08/21/21 08/21/21 ondansetron 4 mg disintegrating 4 mg PO Q4H 08/21/21 08/21/21 tablet tamsulosin 0.4 mg capsule 0.4 mg PO QDAY 08/21/21 08/21/21 tizanidine 2 mg tablet 2 mg PO HS 08/21/21 08/21/21 Previous Rx's ?Medication ?Instructions ?Recorded diazepam 5 mg tablet 5 mg PO TID PRN muscle spasm #9 08/21/21 tabs doxycycline hyclate 100 mg capsule 100 mg PO BID #14 caps 05/22/22 ondansetron 4 mg disintegrating 4 mg PO Q8H PRN nausea and 05/22/22 tablet vomiting #10 tabs fluconazole 150 mg tablet 150 mg PO Q3D 2 doses #2 tabs 08/03/24 ibuprofen 800 mg tablet 800 mg PO TID PRN pain #30 tabs 08/03/24 acetaminophen 300 mg-codeine 30 mg 2 tab PO Q8H PRN pain #10 tabs 09/14/24 tablet albuterol sulfate 90 mcg/actuation 2 puff inhalation Q6H PRN 09/14/24 aerosol inhaler shortness of breath or wheezing #8.5 grams azithromycin 500 mg tablet 500 mg PO QDAY 3 days #3 tabs 09/14/24 (Zithromax TRI-DENIA) prednisone 50 mg tablet 50 mg PO QDAY #3 tabs 09/14/24 Allergies Allergy/AdvReac Type Severity Reaction Status Date / Time No Known Allergies Allergy Verified 09/14/24 10:10 Course Quality Measures none Orders Category Date Time Status Bedside COVID-19 Antigen Test NOW Care 09/14/24 09:32 Active Bedside Influenza A&B Antigen Test NOW Care 09/14/24 09:32 Completed EKG (ED ONLY) *Do not use* NOW Care 09/14/24 09:32 Completed EKG (ED Only) Stat Exams 09/14/24 09:32 Draft XR chest 1V portable Stat Exams 09/14/24 09:32 Ordered ACETAMINOPHEN w/COD 300-30 [Tylenol w/Cod #3] Med 09/14/24 09:31 Discontinued 2 tab PO X1 ONE DiphenhydrAMINE [Benadryl] Med 09/14/24 09:31 Discontinued 50 mg PO X1 ONE Levalbuterol Rt [Xopenex Rt Stephanie] Med 09/14/24 09:31 Discontinued 1.25 mg INH X1 ONE Sodium Chloride Rt Stephanie 0.9% [NS Rt Stephanie 0.9%] Med 09/14/24 09:31 Active 3 ml INH PRN PRN predniSONE Med 09/14/24 09:31 Discontinued 60 mg PO X1 ONE Vital Signs Vital signs: Vital Signs Temperature 97.8 F 09/14/24 09:31 Pulse Rate 113 H 09/14/24 09:31 Respiratory Rate 24 H 09/14/24 09:31 Blood Pressure 112/73 09/14/24 09:31 Pulse Oximetry (%) 100 09/14/24 09:31 Oxygen Delivery Method Room Air 09/14/24 09:31 Shortness of Breath / Dyspnea MDM Narrative MDM Narrative:: I, Janice Milan am scribing for and in the presence of Dr. Larsen. Patient data External records reviewed:: [facility] previous records (Reviewed last ED visit dated 08/03/24, discharged with the following: Amphetamine abuse) Clinical information provided by:: patient Social determinants that could affect healthcare access:: other (specify) (cigarettes' smoker) Patient has the following chronic illnesses:: COPD, cigarettes' smoker How is presenting disease/condition affected by chronic disease/condition?: exacerbated by Evaluation data The following diagnostics were reviewed and interpreted by me:: lab results, radiology exam(s) and EKG tracing(s) (My interpretation of the EKG is: Sinus rhythm (98 bpm) with nonspecific ST-T changes. John Larsen MD) Lab and/or radiology exams considered but not ordered:: none Interpretation Summary: Lower respiratory infection Medications / Prescriptions Medications or Prescriptions considered but not ordered:: none Medication administrations:: Medication Administration History Sodium Chloride (Sodium Chloride Rt Stephanie 0.9% 3 Ml Nebu) 3 ml INH PRN PRN PRN Reason: SOLN Stop: 10/14/24 09:30 Last Admin: 09/14/24 09:50 Dose: 3 ml Documented By: FLORENCE Discontinued Medications Acetaminophen/Codeine Phosphate (Acetaminophen W/Cod 300-30 Tablet) 2 tab PO X1 ONE Stop: 09/14/24 09:32 Last Admin: 09/14/24 09:46 Dose: 2 tab Documented By: DOTTY Diphenhydramine HCl (Diphenhydramine 25 Mg Capsule) 50 mg PO X1 ONE Stop: 09/14/24 09:32 Last Admin: 09/14/24 09:46 Dose: 50 mg Documented By: OA Levalbuterol HCl (Levalbuterol Rt 1.25 Mg/0.5 Ml Nebu) 1.25 mg INH X1 ONE Stop: 09/14/24 09:32 Last Admin: 09/14/24 09:50 Dose: 1.25 mg Documented By: FLORENCE Prednisone (Prednisone 20 Mg Tablet) 60 mg PO X1 ONE Stop: 09/14/24 09:32 Last Admin: 09/14/24 09:47 Dose: 60 mg Documented By: OA Prednisone and Xopenex neb treatment and Benadryl and two Tylenol #3 Consultations Consultation(s) initiated? (list below): No Diagnosis Shortness of Breath Differential Diagnosis: acute exacerbation of chronic obstructive airways disease, community acquired pneumonia, asthma with exacerbation and other (Influenza, COVID, low respiratory infection) Most likely diagnosis given after review of the tests above:: Lower respiratory infection Admission Indicated Admission indicated?: not indicated Explain why admission is indicated or not indicated:: There is no indication for admission. Admission Request Was there a request for admission?: No Disposition Plan Disposition Plan: Discharge Discharge Attestation Discharge Attestation: The patient and all family members were given an opportunity to ask questions and understood the discharge instructions. Discharge instructions specifically effects, indications for sooner follow up or return to the emergency department, and the expected course of current diagnosis. Patient condition: Stable Discharge Plan Plan Patient Disposition: HOME (Self Care) Prescriptions/Referrals Prescriptions/Med Rec: New acetaminophen-codeine 300-30 mg tablet 2 tab PO Q8H MDD 6 PRN (Reason: pain) Qty: 10 0RF prednisone 50 mg tablet 50 mg PO QDAY Qty: 3 0RF albuterol sulfate 90 mcg/actuation HFA aerosol inhaler 2 puff inhalation Q6H PRN (Reason: shortness of breath or wheezing) Qty: 8.5 0RF azithromycin [Zithromax TRI-DENIA] 500 mg tablet 500 mg PO QDAY 3 Days Qty: 3 0RF No Action latanoprost 0.005 % drops 1 drp OPHTHALMIC (EYE) HS Patient Comments: INSTILL ONE DROP IN EACH EYE AT BEDTIME Rx Instructions: 1 drop in each eye tizanidine 2 mg tablet 2 mg PO HS Patient Comments: TAKE 1 TO 2 TABLETS BY MOUTH EVERY DAY AT BED TIME Rx Instructions: take 1-2 tablets meloxicam 15 mg tablet 15 mg PO QDAY Patient Comments: TAKE ONE TABLET BY MOUTH EVERY DAY WITH FOOD FOR ARTHRITIS FOR INFLAMMATION hydrocodone-acetaminophen 10-325 mg tablet 1 tab PO BID Patient Comments: TAKE ONE TABLET BY MOUTH TWICE DAILY NEEDED FOR PAIN ketorolac 10 mg tablet 10 mg PO Q6HR Patient Comments: TAKE ONE TABLET BY MOUTH EVERY 6 HOURS NEEDED FOR 5 DAYS magnesium oxide 400 mg (241.3 mg magnesium) tablet 200 mg PO BID Patient Comments: TAKE 1/2 TABLET BY MOUTH TWICE DAILY Rx Instructions: take 1/2 tablet twice a day tamsulosin 0.4 mg capsule 0.4 mg PO QDAY Patient Comments: TAKE ONE CAPSULE BY MOUTH EVERY DAY FOR PROSTATE ondansetron 4 mg tablet,disintegrating 4 mg PO Q4H Rx Instructions: every 4-6 hours Combivent Respimat 20-100 mcg/actuation mist 1 puff INHALATION Q6H diazepam 5 mg tablet 5 mg PO TID PRN (Reason: muscle spasm) Qty: 9 0RF doxycycline hyclate 100 mg capsule 100 mg PO BID Qty: 14 0RF ondansetron 4 mg tablet,disintegrating 4 mg PO Q8H PRN (Reason: nausea and vomiting) Qty: 10 0RF ibuprofen 800 mg tablet 800 mg PO TID PRN (Reason: pain) Qty: 30 0RF fluconazole 150 mg tablet 150 mg PO Q3D Qty: 2 0RF Referrals: Lane Carcamo MD [Primary Care Provider] - In 1 week Problem List Clinical Impression: Lower respiratory infection Patient/Caregiver Discharge Instructions Discharge Activity: activity as tolerated Additional Instructions: Discharge instructions from Dr. Larsen: --No physical exertion for 3 days to help rest the lungs. ?No smoking or exposure to smoking or pets or dust or cold air. --Zithromax to kill the germs causing the bronchitis. --Prednisone to help decrease the swelling in the airways. --Tylenol with codeine for severe cough for severe pain. --Albuterol 2 puffs every 4-6 hours for today and tomorrow to help keep the airways open. Then as needed for cough or shortness of breath. --See a private doctor next week for recheck. --Seek immediate medical care with worsening or with any concerns. Print Language: Turkish Stand Alone Forms: [employer] Award Info., Patient Portal Info Letter
--- NOTE | 2024-09-14 09:32 | XR_ITS ---
Examination: PA chest single view TECHNIQUE: Upright PA chest single view Exam date and time: September 14, 2024 1023 hours INDICATIONS: Coughing beginning 2 weeks ago shortness of breath FINDINGS: Early pneumonia versus bibasilar bronchitis Normal heart size Intact osseous structures IMPRESSION: Bibasilar bronchitis versus early bronchopneumonia, clinical correlation advised
--- NOTE | 2024-09-14 09:32 | EKG_ITS ---
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
[2024-09-14] MEDS: ACETAMINOPHEN w/COD 300-30 TABLET 2 TAB PO (09:46)
[2024-09-14] MEDS: DiphenhydrAMINE 25 MG CAPSULE 50 MG PO (09:46)
[2024-09-14] MEDS: predniSONE 20 MG TABLET 60 MG PO (09:47)
[2024-09-14] MEDS: SODIUM CHLORIDE RT SOL 0.9% 3 ML NEBU INH (09:50)
[2024-09-14] MEDS: LEVALBUTEROL RT 1.25 MG/0.5 ML NEBU INH (09:50)
[2024-09-14 09:52] VITALS: PULSE 117; RESP 28; O2SAT 100
[2024-09-14 11:56] VITALS: PULSE 89; RESP 18; O2SAT 99
== END 2024-09-14 11:56 | disposition home or self-care (01) ==
PROVIDERS: Emergency Provider Emergency Medicine; PCP Family Medicine
DX: J44.0 Chronic obstructive pulmonary disease with (acute) lower respiratory infection (principal); F17.210 Nicotine dependence, cigarettes, uncomplicated
CPT/HCPCS: 71045; 87400; 87811; 93005; 94640; 99283; J7512; A9270

== ENCOUNTER 2024-09-21 10:14 | Outpatient (RCR) | payer MEDICAID, SELFPAY | END 2024-10-10 23:59 | disposition home or self-care (01) | LOC: CPTX 10:14 | PROVIDERS: PCP Orthopaedic Surgery; Referring Provider Orthopaedic Surgery; Visit Provider Orthopaedic Surgery | DX: Z53.9 Procedure and treatment not carried out, unspecified reason (principal) ==

== ENCOUNTER → 2024-10-20 | Outpatient (BNVA) | payer MEDICAID, SELFPAY | END | disposition home or self-care (01) | PROVIDERS: PCP Family Medicine; Referring Provider Family Medicine; Visit Provider Urology | DX: N20.0 Calculus of kidney (principal); E66.9 Obesity, unspecified; Z68.26 Body mass index [BMI] 26.0-26.9, adult; I10 Essential (primary) hypertension; K21.9 Gastro-esophageal reflux disease without esophagitis; F17.210 Nicotine dependence, cigarettes, uncomplicated | CPT/HCPCS: 81003; 99212; G0463 ==

== ENCOUNTER 2024-11-11 22:19 | Emergency (ER) | payer MEDICAID, SELFPAY ==
[2024-11-11 22:37] VITALS: BP 155/89; PULSE 86; RESP 16; TEMP 36.6; O2SAT 97; BMI 26.4
[2024-11-12] MEDS: TRIMETHOPRIM/SULFA 160/800 DS TABLET 1 TAB PO (00:09)
--- NOTE | 2024-11-12 00:35 | EDNOTE_ITS ---
<Statement entered by Keshia Mcdonough MD - 11/13/24 04:33> As co-signing physician, I was present and available for consult prn. I concur with the plan and care as documented by the midlevel provider. ED Wound/Laceration-RME/HPI General Chief Complaint: Extremity Injury, Upper Stated Complaint: LEFT 2ND FINGER LAC Time Seen by Provider: 11/11/24 23:46 Arrival date/time: 11/11/24 22:19 49F with history of HTN, asthma and drug use presents to ED with L index lac after she accidentally cut herself. Patient had a tdap here about 5 years ago. Limitations: no limitations Related Data Home Medications ?Medication ?Instructions ?Recorded ?Confirmed hydrocodone 10 mg-acetaminophen 1 tab PO BID 08/21/21 10/20/24 325 mg tablet ipratropium 20 mcg-albuterol 100 1 puff inhalation Q6H 08/21/21 10/20/24 mcg/actuation mist for inhalation (Combivent Respimat) ketorolac 10 mg tablet 10 mg PO Q6HR 08/21/2110/20 latanoprost 0.005 % eye drops 1 drp ophthalmic (eye) H S 08/21/21 10/20/24 magnesium oxide 400 mg (241.3 mg 200 mg PO BID 2 10/20/24 magnesium) tablet meloxicam 15 mg tablet 15 mg PO QDAY 08/21/2110/20 ondansetron 4 mg disintegrating 4 mg PO Q4H 08/21/21 0 10/20/24 tablet tamsulosin 0.4 mg capsule 0.4 mg PO QDAY 08/21/2110/11 tizanidine 2 mg tablet 2 mg PO HS 08/21/21 10/20/24 Previous Rx's ?Medication ?Instructions ?Recorded diazepam 5 mg tablet 5 mg PO TID PRN muscle spasm #9 08/21/21 tabs doxycycline hyclate 100 mg capsule 100 mg PO BID #14 c aps 05/22/22 ondansetron 4 mg disintegrating 4 mg PO Q8H PRN nausea and 05/22/22 tablet vomiting #10 tabs fluconazole 150 mg tablet 150 mg PO Q3D 2 doses #2 tab s 08/03/24 ibuprofen 800 mg tablet 800 mg PO TID PRN pain #30 t abs 08/03/24 acetaminophen 300 mg-codeine 30 mg 2 tab PO Q8H PRN pa in #10 tabs 09/14/24 tablet albuterol sulfate 90 mcg/actuation 2 puff inhalation Q 6H PRN 09/14/24 aerosol inhaler shortness of breath or wheez ing #8.5 grams prednisone 50 mg tablet 50 mg PO QDAY #3 tabs sulfamethoxazole 800 1 tab PO BID 5 days #10 tabs 11/12/24 mg-trimethoprim 160 mg tablet (Bactrim DS) Allergies Allergy/AdvReac Type Severity Reaction Status Date / Time Penicillins Allergy Intermediate Hives Verified 11/12/24 00:07 amoxicillin Allergy Verified 11/12/24 00:07 Review of Systems Review of Systems Systems Reviewed: All systems reviewed, normal except as documented Constitutional Constitutional: Reports system reviewed and no additional complaints, except as documented, Denies fever(s) and Denies headache(s) ENT Ears, Nose, Mouth, and Throat: Denies disequilibrium and Denies headache(s) Cardiovascular Cardiovascular: Reports system reviewed and no additional complaints, except as documented, Denies chest pain and Denies dyspnea Respiratory Respiratory: Reports system reviewed and no additional complaints, except as documented, Denies cough and Denies dyspnea Gastrointestinal Gastrointestinal: Reports system reviewed and no additional complaints, except as documented, Denies abdominal pain, Denies nausea and Denies vomiting Integumentary/Breasts Skin/Breast: Reports as per HPI and Reports skin pain Neurologic Neurologic: Reports system reviewed and no additional complaints, except as documented, Denies confusion, Denies disequilibrium and Denies headache(s) Psychiatric Psychiatric: Denies confusion Past Medical History Past Medical History NEUROLOGIC: Positive Neurological Disorders, Peripheral Neuropathy and Migraine; Negative Seizures CARDIAC: Positive Hypertension; Negative Cardiac Disorders or Congestive Heart Failure RESPIRATORY: Positive Asthma; Negative Chronic Obstructive Pulmonary Disease (COPD), Tuberculosis or Sleep Apnea GASTROINTESTINAL: Positive Gastrointestinal Disorders, Delatorre's Esophagus and Gastroesophageal Reflux Disease; Negative Hepatitis GENITOURINARY: Positive Genitourinary Disorders and Kidney Stones; Negative Renal Disease REPRODUCTIVE: Positive Previous Pregnancies MUSCULOSKELETAL: Positive Musculoskeletal Disorders, Arthritis and Degenerative Disk Disease; Negative Carpal Tunnel Syndrome ENT: Positive Glaucoma and Ear Infection ENDOCRINE: Negative Endocrine Disorders, Diabetes Mellitus Type 1 or Diabetes Mellitus Type 2 HEMATOLOGIC: Positive Blood Disorders and Anemia; Negative Sickle Cell Disease or Clotting Problems PSYCHO/SOCIAL: Positive Depression, Anxiety and Post Traumatic Stress Disorder OTHER HISTORY: Positive Chicken Pox; Negative Autoimmune Disease, Falls, Blood Transfusions, Blood Transfusion Reaction, Anesthesia Reactions, MRSA or Cancer Family History FAMILY HISTORY: Positive Family Respiratory Disorders, Family Cardiac Disorders, Family Gastrointestinal Problems, Family Cancer and Family Surgery; Negative Family Psychiatric Problems or Family Anesthesia Reaction Surgical History SURGICAL: Positive Ear Surgery, Tympanostomy Tube and Tubal Ligation; Negative Cardiac Surgery, Endocrine Surgery or Abdominal Surgery Social History SMOKING STATUS: Former smoker SUBSTANCE USE: former substance user and crack/cocaine (former 10 years ago) ED Exam General Limitations: Present no limitations General appearance: Present alert and in no apparent distress Head Head exam: Present atraumatic Eye Eye exam: Present normal appearance, PERRL and EOMI ENT ENT exam: Present normal exam, normal oropharynx and mucous membranes moist Neck Neck exam: Present normal inspection, full ROM and trachea midline Chest Chest inspection: Present normal inspection and symmetric chest wall rise Respiratory Respiratory exam: Present normal lung sounds bilaterally Cardiovascular Cardiovascular exam: Present regular rate, normal rhythm and normal heart sounds Abdominal Exam Abdominal exam: Present soft and normal bowel sounds Extremities Exam Extremities exam: Present full ROM Expanded Upper Extremity Exam Hand exam: Present full ROM and laceration (2 cm L index finger) Back Exam Back exam: Present normal inspection and full ROM Neurological Exam Neurological exam: Present alert, oriented X3 and CN II-XII intact Psychiatric Psychiatric exam: Present normal affect and normal mood Skin Skin exam: Present warm, dry, intact and normal color Course Quality Measures none Orders Category Date Time Status Set Up Suture Tray STAT Care 11/11/24 23:46 Completed Splint / Immobilizer STAT Care 11/12/24 00:47 Completed Dexamethasone Inj [Decadron Inj] Med 11/12/24 00:43 Discontinued 10 mg PO X1 ONE Trimethoprim/Sulfa 160/800 Ds [Bactrim Ds] Med 11/11/24 23:46 Discontinued 1 tab PO X1 ONE Vital Signs Vital signs: Vital Signs Temperature 97.8 F 11/11/24 22:37 Pulse Rate 86 11/11/24 22:37 Respiratory Rate 16 11/11/24 22:37 Blood Pressure 155/89 H 11/11/24 22:37 Pulse Oximetry (%) 97 11/11/24 22:37 Oxygen Delivery Method Room Air 11/11/24 22:37 O2 at 97% on RA and WNls Wound / Laceration MDM Narrative MDM Narrative:: 49F with history of HTN, asthma and drug use presents to ED with L index lac after she accidentally cut herself. Patient had a tdap here about 5 years ago. Physical exam reveals 2 cm lac on L index finger. ROM intact. Patient is afebrile, calm, and alert. Wound cleaned/irrigated and closed by resident Dr. Velasquez, see her procedure note. Will give ABX given contaminated wound and drug use history. Patient data External records reviewed:: [facility] previous records Clinical information provided by:: patient Social determinants that could affect healthcare access:: mental health Patient has the following chronic illnesses:: HTN, asthma and drug use How is presenting disease/condition affected by chronic disease/condition?: exacerbated by Evaluation data The following diagnostics were reviewed and interpreted by me:: other (specify) (none) Lab and/or radiology exams considered but not ordered:: not ordered Interpretation Summary: n/a Medications / Prescriptions Medications or Prescriptions considered but not ordered:: ordered Medication administrations:: Medication Administration History Discontinued Medications Dexamethasone Sodium Phosphate (Dexamethasone Sod Phos Inj 10 Mg/Ml Vial) 10 mg PO X1 ONE Stop: 11/12/24 00:44 Last Admin: 11/12/24 00:58 Dose: 10 mg Documented By: Trimethoprim/Sulfamethoxazole (Trimethoprim/Sulfa 160/800 Ds Tablet) 1 tab PO X1 ONE Stop: 11/11/24 23:47 Last Admin: 11/12/24 00:09 Dose: 1 tab Documented By: above Consultations Consultation(s) initiated? (list below): No Diagnosis Wound Differential Diagnosis: laceration, abscess, abrasion and avulsion of skin Most likely diagnosis given after review of the tests above:: laceration Admission Indicated Admission indicated?: not indicated Admission Request Was there a request for admission?: No Disposition Plan Disposition Plan: Discharge Discharge Attestation Discharge Attestation: The patient and all family members were given an opportunity to ask questions and understood the discharge instructions. Discharge instructions specifically effects, indications for sooner follow up or return to the emergency department, and the expected course of current diagnosis. Patient condition: Stable Discharge Plan Plan Patient Disposition: HOME (Self Care) Discharge Disposition comment: Stable Prescriptions/Referrals Prescriptions/Med Rec: New sulfamethoxazole-trimethoprim [Bactrim DS] 800-160 mg tablet 1 tab PO BID 5 Days Qty: 10 0RF No Action latanoprost 0.005 % drops 1 drp OPHTHALMIC (EYE) HS Patient Comments: INSTILL ONE DROP IN EACH EYE AT BEDTIME Rx Instructions: 1 drop in each eye tizanidine 2 mg tablet 2 mg PO HS Patient Comments: TAKE 1 TO 2 TABLETS BY MOUTH EVERY DAY AT BED TIME Rx Instructions: take 1-2 tablets meloxicam 15 mg tablet 15 mg PO QDAY Patient Comments: TAKE ONE TABLET BY MOUTH EVERY DAY WITH FOOD FOR ARTHRITIS FOR INFLAMMATION hydrocodone-acetaminophen 10-325 mg tablet 1 tab PO BID Patient Comments: TAKE ONE TABLET BY MOUTH TWICE DAILY NEEDED FOR PAIN ketorolac 10 mg tablet 10 mg PO Q6HR Patient Comments: TAKE ONE TABLET BY MOUTH EVERY 6 HOURS NEEDED FOR 5 DAYS magnesium oxide 400 mg (241.3 mg magnesium) tablet 200 mg PO BID Patient Comments: TAKE 1/2 TABLET BY MOUTH TWICE DAILY Rx Instructions: take 1/2 tablet twice a day tamsulosin 0.4 mg capsule 0.4 mg PO QDAY Patient Comments: TAKE ONE CAPSULE BY MOUTH EVERY DAY FOR PROSTATE ondansetron 4 mg tablet,disintegrating 4 mg PO Q4H Rx Instructions: every 4-6 hours Combivent Respimat 20-100 mcg/actuation mist 1 puff INHALATION Q6H diazepam 5 mg tablet 5 mg PO TID PRN (Reason: muscle spasm) Qty: 9 0RF doxycycline hyclate 100 mg capsule 100 mg PO BID Qty: 14 0RF ondansetron 4 mg tablet,disintegrating 4 mg PO Q8H PRN (Reason: nausea and vomiting) Qty: 10 0RF acetaminophen-codeine 300-30 mg tablet 2 tab PO Q8H MDD 6 PRN (Reason: pain) Qty: 10 0RF prednisone 50 mg tablet 50 mg PO QDAY Qty: 3 0RF albuterol sulfate 90 mcg/actuation HFA aerosol inhaler 2 puff inhalation Q6H PRN (Reason: shortness of breath or wheezing) Qty: 8.5 0RF ibuprofen 800 mg tablet 800 mg PO TID PRN (Reason: pain) Qty: 30 0RF fluconazole 150 mg tablet 150 mg PO Q3D Qty: 2 0RF Referrals: Lane Carcamo MD [Primary Care Provider] - In 1 week Problem List Clinical Impression: Laceration Patient/Caregiver Discharge Instructions Education Materials: ED Laceration Hand with ... Additional Instructions: Please follow-up with PCP within 24-48 hours and return immediately if symptoms worsen. Have stitches removed in about 10-14 days. 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 Mcdonough
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
[2024-11-12] MEDS: DEXAMETHASONE SOD PHOS INJ 10 MG/ML VIAL PO (00:58)
== END 2024-11-12 01:08 | disposition home or self-care (01) ==
PROVIDERS: Emergency Provider Emergency Medicine; PCP Family Medicine
DX: S61.211A Laceration without foreign body of left index finger without damage to nail, initial encounter (principal); W45.8XXA Other foreign body or object entering through skin, initial encounter
CPT/HCPCS: 12001; 99283; J1100; A9270

== ENCOUNTER → 2025-01-30 | Outpatient (CLI) | payer MEDICAID, SELFPAY ==
--- NOTE | 2025-01-30 09:07 | XR_ITS ---
Examination: Bilateral wrists 6 views TECHNIQUE: AP oblique lateral each wrist total 6 views Date and time: January 30, 2025 0917 hours INDICATIONS: Wrist pain several years, history injury to the left hand one year ago and injured to the right hand 30 years ago FINDINGS: Small old area of bone density adjacent to the base of the right second metacarpal Mild narrowing right radiocarpal joint Orthopedic hardware adjacent to the base of the left first metacarpal and base of the second metacarpal Most of the trapezium on the left is absent Mild narrowing left radiocarpal joint IMPRESSION: Postsurgical changes left wrist Bilateral mild narrowing radiocarpal joints No acute fractures No avascular necrosis No erosive arthritis
--- NOTE | 2025-01-30 09:07 | XR_ITS ---
Examination: Bilateral hands, 6 views. Technique: AP, Oblique, Lateral each hand total 6 views Date and time of exam: January 30, 2025 0910 hours INDICATIONS: Left hand and wrist pain several years, injury to the left hand in surgery one year ago Right hand pain 6 months, injury and survey of the right hand 30 years ago Findings: Old area of bone density at the base of the second right metacarpal Right mild to moderate osteoarthritis radiocarpal, first carpometacarpal joints Mild osteoarthritis distal right interphalangeal joints second through fifth digits Surgical changes with orthopedic hardware at the base of the left first metacarpal and second metacarpal with resection of the trapezium Mild narrowing left radiocarpal joint Mild osteoarthritis distal interphalangeal joints second through fifth digits and left first digit interphalangeal joint IMPRESSION: Osteoarthritis as above Postsurgical changes left hand as above
== END | disposition home or self-care (01) ==
PROVIDERS: PCP Family Medicine
DX: M18.11 Unilateral primary osteoarthritis of first carpometacarpal joint, right hand (principal); M15.1 Heberden's nodes (with arthropathy)
CPT/HCPCS: 73110; 73130

== ENCOUNTER 2025-02-05 21:56 | Emergency (ER) | payer MEDICAID, SELFPAY ==
[2025-02-05 22:01] VITALS: BP 142/63; PULSE 97; RESP 19; TEMP 36.6; O2SAT 99
--- NOTE | 2025-02-06 00:47 | PC.NURSE ---
PT DOES NOT WANT TO WAIT FOR PROVIDER PT STATES SHE IS LEAVING PT WAS IN ROOM WAITING FOR PROVIDER
== END 2025-02-06 00:51 | disposition left against medical advice (07) ==
PROVIDERS: Emergency Provider Emergency Medicine
DX: Z53.21 Procedure and treatment not carried out due to patient leaving prior to being seen by health care provider (principal)
CPT/HCPCS: 99282

== ENCOUNTER 2025-03-14 15:08 | Emergency (ER) | payer MEDICAID, SELFPAY ==
[2025-03-14 15:10] VITALS: BP 132/79; PULSE 96; RESP 18; TEMP 36.6; O2SAT 96
--- NOTE | 2025-03-14 15:10 | EDNOTE_ITS ---
<Statement entered by Keshia Mcdonough MD - 03/25/25 11:13> As co-signing physician, I was present and available for consult prn. I concur with the plan and care as documented by the midlevel provider. ED General RME/HPI General Chief complaint: Hand/Wrist Problems Stated complaint: LEFT EXTREMITIES INJURIES Time Seen by Provider: 03/14/25 15:09 Arrival date/time: 03/14/25 15:08 CC: Left hand pain HPI patient presents to the ER via EMS immobilized after striking herself inadvertently with a hand-held sledgehammer in the top of the left hand patient experienced immediate pain at the base of the 2nd and 3rd digit. Patient denies broken skin or bleeding. Pain radiating up into the forearm and wrist, pain is currently an 8 on a 10 scale. EMS gave pain medications and route. Patient's vital signs are stable currently pain is an 8 on a 10 scale. Related Data Home Medications ?Medication ?Instructions ?Recorded ?Confirmed hydrocodone 10 mg-acetaminophen 1 tab PO BID 08/21/21 10/20/24 325 mg tablet ipratropium 20 mcg-albuterol 100 1 puff inhalation Q6H 08/21/21 10/20/24 mcg/actuation mist for inhalation (Combivent Respimat) ketorolac 10 mg tablet 10 mg PO Q6HR 08/21/2110/20 latanoprost 0.005 % eye drops 1 drp ophthalmic (eye) H S 08/21/21 10/20/24 magnesium oxide 400 mg (241.3 mg 200 mg PO BID 2 10/20/24 magnesium) tablet meloxicam 15 mg tablet 15 mg PO QDAY 08/21/2110/20 ondansetron 4 mg disintegrating 4 mg PO Q4H 08/21/21 0 10/20/24 tablet tamsulosin 0.4 mg capsule 0.4 mg PO QDAY 08/21/2110/11 tizanidine 2 mg tablet 2 mg PO HS 08/21/21 10/20/24 Previous Rx's ?Medication ?Instructions ?Recorded diazepam 5 mg tablet 5 mg PO TID PRN muscle spasm #9 08/21/21 tabs doxycycline hyclate 100 mg capsule 100 mg PO BID #14 c aps 05/22/22 ondansetron 4 mg disintegrating 4 mg PO Q8H PRN nausea and 05/22/22 tablet vomiting #10 tabs fluconazole 150 mg tablet 150 mg PO Q3D 2 doses #2 tab s 08/03/24 ibuprofen 800 mg tablet 800 mg PO TID PRN pain #30 t abs 08/03/24 acetaminophen 300 mg-codeine 30 mg 2 tab PO Q8H PRN pa in #10 tabs 09/14/24 tablet albuterol sulfate 90 mcg/actuation 2 puff inhalation Q 6H PRN 09/14/24 aerosol inhaler shortness of breath or wheez ing #8.5 grams prednisone 50 mg tablet 50 mg PO QDAY #3 tabs meloxicam 7.5 mg tablet 7.5 mg PO QDAY #10 tabs 09/06 Allergies Allergy/AdvReac Type Severity Reaction Status Date / Time Penicillins Allergy Intermediate Hives Verified 03/14/25 15:15 amoxicillin Allergy Verified 03/14/25 15:15 erythromycin base Allergy Verified 03/14/25 15:15 Review of Systems Review of Systems Narrative Review of Systems: GEN: No fever, no chills, no weight loss EYES: No discharge, no visual changes, no pain HEENT: No ear pain, no congestion, no sore throat PULM: No shortness of breath, no cough, no congestion CV: No chest pain, no dyspnea on exertion, no palpitations GI: No nausea, no vomiting, no diarrhea, no pain, no constipation : No frequency, no urgency, no dysuria MUSC/SKEL: + joint pain, no back pain SKIN: No rash PSYCH: No hallucinations, no depression HEME/LYMPH: No easy bleeding or bruising tendencies NEURO: No weakness, no headache Past Medical History Past Medical History NEUROLOGIC: Positive Neurological Disorders, Peripheral Neuropathy and Migraine; Negative Seizures CARDIAC: Positive Hypertension; Negative Cardiac Disorders or Congestive Heart Failure RESPIRATORY: Positive Asthma; Negative Chronic Obstructive Pulmonary Disease (COPD), Tuberculosis or Sleep Apnea GASTROINTESTINAL: Positive Gastrointestinal Disorders, Delatorre's Esophagus and Gastroesophageal Reflux Disease; Negative Hepatitis GENITOURINARY: Positive Genitourinary Disorders and Kidney Stones; Negative Renal Disease REPRODUCTIVE: Positive Previous Pregnancies MUSCULOSKELETAL: Positive Musculoskeletal Disorders, Arthritis and Degenerative Disk Disease; Negative Carpal Tunnel Syndrome ENT: Positive Glaucoma and Ear Infection ENDOCRINE: Negative Endocrine Disorders, Diabetes Mellitus Type 1 or Diabetes Mellitus Type 2 HEMATOLOGIC: Positive Blood Disorders and Anemia; Negative Sickle Cell Disease or Clotting Problems PSYCHO/SOCIAL: Positive Depression, Anxiety and Post Traumatic Stress Disorder OTHER HISTORY: Positive Chicken Pox; Negative Autoimmune Disease, Falls, Blood Transfusions, Blood Transfusion Reaction, Anesthesia Reactions, MRSA or Cancer Family History FAMILY HISTORY: Positive Family Respiratory Disorders, Family Cardiac Disorders, Family Gastrointestinal Problems, Family Cancer and Family Surgery; Negative Family Psychiatric Problems or Family Anesthesia Reaction Surgical History SURGICAL: Positive Ear Surgery, Tympanostomy Tube and Tubal Ligation; Negative Cardiac Surgery, Endocrine Surgery or Abdominal Surgery Social History SMOKING STATUS: Current every day smoker SUBSTANCE USE: former substance user and crack/cocaine (former 10 years ago) ED Exam Narrative Physical exam: [General: Moderate discomfort but not in any acute distress Head normocephalic HEENT: Eyes pupils are PERRLA EOMs are intact all other subsystems of HEENT are within acceptable limits Neck is supple nontender Chest equal chest rise nontender to palpation Respiratory: Clear to auscultation no wheezes crackles or rubs CV: Rate rhythm is regular no murmurs rubs or clicks Abdomen is soft nontender no masses positive bowel sounds all 4 quadrants Back: No CVA tenderness no spinous process tenderness from cervical spine thoracic and lumbar spine Skin: Intact no petechiae rash induration ulceration or crepitus Extremities: Left hand: Patient has significant edema to the metacarpal of the second digit, decreased range of motion secondary to pain cap refill in all digits less than 2 seconds. First digit decreased range of motion secondary to pain but no edema cap refill less than 2 seconds. Moving all extremities against resistance cap refill less than 2 seconds neurosensory intact Neuro: Awake alert oriented x3 Glascow coma 15 no focal deficits] Course Quality Measures none Orders Category Date Time Status XR hand comp LT min 3V Stat Exams 03/14/25 15:10 Completed oxyCODONE/APAP 5/325 [Percocet 5/325] Med 03/14/25 16:01 Discontinued 1 tab PO X1 ONE Vital Signs Vital signs: Vital Signs Temperature 97.8 F 03/14/25 15:10 Pulse Rate 96 03/14/25 15:10 Respiratory Rate 18 03/14/25 15:10 Blood Pressure 132/79 H 03/14/25 15:10 Pulse Oximetry (%) 96 03/14/25 15:10 Oxygen Delivery Method Room Air 03/14/25 15:10 Discharge Plan Plan Patient Disposition: HOME (Self Care) Patient condition on transfer: Stable Prescriptions/Referrals Prescriptions/Med Rec: New meloxicam 7.5 mg tablet 7.5 mg PO QDAY Qty: 10 0RF No Action latanoprost 0.005 % drops 1 drp OPHTHALMIC (EYE) HS Patient Comments: INSTILL ONE DROP IN EACH EYE AT BEDTIME Rx Instructions: 1 drop in each eye tizanidine 2 mg tablet 2 mg PO HS Patient Comments: TAKE 1 TO 2 TABLETS BY MOUTH EVERY DAY AT BED TIME Rx Instructions: take 1-2 tablets meloxicam 15 mg tablet 15 mg PO QDAY Patient Comments: TAKE ONE TABLET BY MOUTH EVERY DAY WITH FOOD FOR ARTHRITIS FOR INFLAMMATION hydrocodone-acetaminophen 10-325 mg tablet 1 tab PO BID Patient Comments: TAKE ONE TABLET BY MOUTH TWICE DAILY NEEDED FOR PAIN ketorolac 10 mg tablet 10 mg PO Q6HR Patient Comments: TAKE ONE TABLET BY MOUTH EVERY 6 HOURS NEEDED FOR 5 DAYS magnesium oxide 400 mg (241.3 mg magnesium) tablet 200 mg PO BID Patient Comments: TAKE 1/2 TABLET BY MOUTH TWICE DAILY Rx Instructions: take 1/2 tablet twice a day tamsulosin 0.4 mg capsule 0.4 mg PO QDAY Patient Comments: TAKE ONE CAPSULE BY MOUTH EVERY DAY FOR PROSTATE ondansetron 4 mg tablet,disintegrating 4 mg PO Q4H Rx Instructions: every 4-6 hours Combivent Respimat 20-100 mcg/actuation mist 1 puff INHALATION Q6H diazepam 5 mg tablet 5 mg PO TID PRN (Reason: muscle spasm) Qty: 9 0RF doxycycline hyclate 100 mg capsule 100 mg PO BID Qty: 14 0RF ondansetron 4 mg tablet,disintegrating 4 mg PO Q8H PRN (Reason: nausea and vomiting) Qty: 10 0RF acetaminophen-codeine 300-30 mg tablet 2 tab PO Q8H MDD 6 PRN (Reason: pain) Qty: 10 0RF prednisone 50 mg tablet 50 mg PO QDAY Qty: 3 0RF albuterol sulfate 90 mcg/actuation HFA aerosol inhaler 2 puff inhalation Q6H PRN (Reason: shortness of breath or wheezing) Qty: 8.5 0RF ibuprofen 800 mg tablet 800 mg PO TID PRN (Reason: pain) Qty: 30 0RF fluconazole 150 mg tablet 150 mg PO Q3D Qty: 2 0RF Referrals: Lane Carcamo MD [Primary Care Provider] - In 1 week Problem List Clinical Impression: Contusion of hand Patient/Caregiver Discharge Instructions Other Activity Instructions:: Apply ice for temporary pain relief through the medications also for temporary pain relief this bruising will take a number of weeks to heal completely but the first 4 to 5 days will be the most uncomfortable. Follow-up with your primary care doctor. Education Materials: ED Hand Contusion Print Language: Guamanian Stand Alone Forms: Carmen Award Info., Patient Portal Info Letter, Work/School Release PA/SKEIN MERCERIZING MACHINE OPERATOR Supervising Physician PA/SKEIN MERCERIZING MACHINE OPERATOR Supervising Physician: Sin Jane ENP [facility] Clinical Information Provided by patient and EMS Medical Records Reviewed [facility] and EMS Meds/Rx Considered, not Ordered None Labs/Rad/Tests considered, not Ordered None Chronic Illness/Social Conditions which may negatively complicate care or outcome(s)-explain: None or not applicable EKG EKG not done Lab Interpretation Labs: none Imaging Imaging interpretation: interpreted by me Provider imaging interpretation(s): X-ray of the hand is interpreted me read by radiology as negative for any acute findings such as fracture malalignment or dislocation. Medication Administration(s) Medication Administration History Discontinued Medications Oxycodone/Acetaminophen (Oxycodone/Apap 5/325 Tablet) 1 tab PO X1 ONE Stop: 03/14/25 16:02 Last Admin: 03/14/25 16:04 Dose: 1 tab Documented By: OA Diagnosis Differential diagnosis: Hand fracture hand dislocation hand fracture and dislocation Most likely dx, and/or detailed dx discussion: Hand contusion Dispositon Disposition: Discharge Home
--- NOTE | 2025-03-14 15:10 | XR_ITS ---
Examination: Hand, left 3 views Technique: Hand AP, oblique, lateral 3 views Date and time of exam: March 14, 2025 1559 hours Injury to the hand today, hand pain FINDINGS: Surgical changes at the first carpometacarpal joint No acute fracture No dislocation IMPRESSION: Postsurgical changes as above No acute fracture
[2025-03-14 15:15] VITALS: PULSE 102; RESP 20; O2SAT 99
== END 2025-03-14 16:52 | disposition home or self-care (01) ==
PROVIDERS: Emergency Provider Emergency Medicine; PCP Family Medicine
DX: S60.222A Contusion of left hand, initial encounter (principal); W22.8XXA Striking against or struck by other objects, initial encounter
CPT/HCPCS: 73130; 99283; A9270

== ENCOUNTER 2025-05-15 08:29 | Emergency (ER) | payer MEDICAID, SELFPAY ==
[2025-05-15 08:43] VITALS: BP 128/69; PULSE 79; RESP 18; TEMP 36.4; O2SAT 98; BMI 28.5
--- NOTE | 2025-05-15 08:51 | PD.EDRME ---
Rapid Medical Screening Exam [facility] Arrival date/time: 05/15/25 08:29 49-year-old female with no known medical history presents to the emergency room with a chief complaint of right-sided flank pain x 2 days. Patient has a nephrostomy in place I have greeted and performed a focused initial assessment of this patient. A comprehensive ED assessment and evaluation of the patient, analysis of all test results, and completion of the medical decision making process will be conducted by additional ED providers. Chief Complaint: Urogenital-Female Time Seen by Provider: 05/15/25 08:48 Vital signs: Vital Signs Temperature 97.6 F 05/15/25 08:43 Pulse Rate 79 05/15/25 08:43 Respiratory Rate 18 05/15/25 08:43 Blood Pressure 128/69 05/15/25 08:43 Pulse Oximetry (%) 98 05/15/25 08:43 Oxygen Delivery Method Room Air 05/15/25 08:43 Vital signs reviewed by provider: Yes Exam: Right CVA tenderness with palpation Soft and nontender abdomen Clinical Impression: Pyelonephritis/renal calculi
[2025-05-15 09:07] LABS: Lactate (Lactic Acid) 1.5 mMol/L (0.4-2.0)
[2025-05-15 09:08] LABS: Basophils # (Auto) 0.0 Thou/mm3 (0.0-0.2); Basophils % (Auto) 0 % (0-2.5); Eosinophils # (Auto) 0.5 Thou/mm3 (0.0-0.5); Eosinophils % (Auto) 6 % (0-10); Hematocrit 39.7 % (36.0-46.0); Hemoglobin 13.2 g/dL (12.0-16.0); Immature Granulocytes Auto 0.02 Thou/mm3 (0.00-0.00); Lymphocytes # (Auto) 1.5 Thou/mm3 (1.0-4.8); Lymphocytes % (Auto) 22 % (10-50); Mean Corpuscular HGB Conc 33.2 g/dl (31.0-37.0); Mean Corpuscular Hemoglobin 30.5 pg (25.0-35.0); Mean Corpuscular Volume 92 fL (80-100); Monocytes # (Auto) 0.6 Thou/mm3 (0.0-0.8); Monocytes % (Auto) 8 % (0-12); Neutrophils # (Auto) 4.4 Thou/mm3 (1.8-7.7); Neutrophils % (Auto) 63 % (37-80); Nucleated Red Blood Cell # 0.00 Thou/mm3 (0.00-0.00); Nucleated Red Blood Cell % 0 /100 WBC (0); Platelet Count 328 Thou/mm3 (140-440); RDW Standard Deviation 42.6 fL (36.4-46.3); Red Blood Count 4.33 Miln/mm3 (4.00-5.20); White Blood Count 7.0 Thou/mm3 (3.6-11.0)
[2025-05-15] MEDS: ONDANSETRON ODT 4 MG TABRAP PO (09:21)
[2025-05-15] MEDS: KETOROLAC INJ 60 MG/2 ML VIAL 30 MG IM (09:21)
[2025-05-15 09:33] LABS: Alanine Aminotransferase 16 U/L (10-49); Albumin, Serum 4.5 gm/dL (3.5-5.0); Albumin/Globulin Ratio 2.0 (1.2-2.2); Alkaline Phosphatase 72 U/L (46-116); Anion Gap 7 (7-16); Aspartate Amino Transferase 14 U/L (0-34); BUN/Creatinine Ratio 11 Ratio (12-20); Bilirubin,Total 0.3 mg/dL (0.3-1.2); Blood Urea Nitrogen 10 mg/dL (9-23); Calcium 9.1 mg/dL (8.3-10.6); Calcium (Corrected) 9.1 mg/dL (8.5-10.1); Carbon Dioxide 28.1 mMol/L (20.0-31.0); Chloride 106 mMol/L (98-107); Creatinine (Component) 0.9 mg/dL (0.6-1.3); Estimated Creatinine Clearance 100.0 mL/min (>60); Globulin 2.3 gm/dL (2.3-3.5); Glucose 121 mg/dL (74-106); Lipase 24 U/L (12-53); Osmolality,Calculated 281 (275-295); Potassium 3.8 mMol/L (3.4-5.1); Procalcitonin < 0.04 ng/ml (0.0-0.49); Sodium 141 mMol/L (136-145); Total Protein 6.8 gm/dL (5.7-8.2); eGFR > 60 See Note
--- NOTE | 2025-05-15 09:54 | EDNOTE_ITS ---
<Statement entered by Keshia Mcdonough MD - 05/17/25 17:56> I, Keshia Mcdonough MD, have reviewed the history, exam, and assessment of the patient. I have evaluated the patient independently and agree with the plan of care documented by [ ]. All diagnostic studies were reviewed and discussed. I confirm the diagnosis as documented by the Resident. I was present during the Medical Decision Making for this patient. The patient's plan of care was created between myself and the Resident and consistent with our discussion of the patient's case. ED Female Urogenital RME/HPI General Chief complaint: Urogenital-Female Stated complaint: PAIN R) NEPHROSTOMY TUBE Time Seen by Provider: 05/15/25 08:48 Arrival date/time: 05/15/25 08:29 RME / HPI RME / HPI Narrative: 05/15/25 08:29 Patient is a 49-year-old female with a past medical history of nonobstructing nephrolithiasis status post nephrostomy tube placed [facility] by Dr. Pemberton, active smoker with possible COPD, who presented to the emergency room via private vehicle with a chief complaint of concern for nephrostomy tube being compromised. Patient complaining of being dirty around nephrostomy tube. Patient concerned he had a nephrostomy tube that is hazy. Nephrostomy tube draining well and appears to be clear urine. Patient has a follow up appointment with urology, dr. Arora. CBC CMP UA ordered Impression: Pyelonephritis/renal calculi Related Data Home Medications ?Medication ?Instructions ?Recorded ?Confirmed hydrocodone 10 mg-acetaminophen 1 tab PO BID 08/21/21 10/20/24 325 mg tablet ipratropium 20 mcg-albuterol 100 1 puff inhalation Q6H 08/21/21 10/20/24 mcg/actuation mist for inhalation (Combivent Respimat) latanoprost 0.005 % eye drops 1 drp ophthalmic (eye) H S 08/21/21 10/20/24 magnesium oxide 400 mg (241.3 mg 200 mg PO BID 2 10/20/24 magnesium) tablet tamsulosin 0.4 mg capsule 0.4 mg PO QDAY 08/21/2110/11 tizanidine 2 mg tablet 2 mg PO HS 08/21/21 10/20/24 Previous Rx's ?Medication ?Instructions ?Recorded diazepam 5 mg tablet 5 mg PO TID PRN muscle spasm #9 08/21/21 tabs ondansetron 4 mg disintegrating 4 mg PO Q8H PRN nausea and 05/22/22 tablet vomiting #10 tabs fluconazole 150 mg tablet 150 mg PO Q3D 2 doses #2 tab s 08/03/24 ibuprofen 800 mg tablet 800 mg PO TID PRN pain #30 t abs 08/03/24 albuterol sulfate 90 mcg/actuation 2 puff inhalation Q 6H PRN 09/14/24 aerosol inhaler shortness of breath or wheez ing #8.5 grams prednisone 50 mg tablet 50 mg PO QDAY #3 tabs nitrofurantoin macrocrystal 100 mg 100 mg PO BID UTI 5 days #10 caps 05/15/25 capsule Allergies Allergy/AdvReac Type Severity Reaction Status Date / Time amoxicillin Allergy Severe Swelling Verified 05/15/25 08:32 of Lip/Tongue/Throat erythromycin base Allergy Severe Swelling Verified 05/15/25 08:32 of Lip/Tongue/Throat Penicillins Allergy Severe Swelling Verified 05/15/25 08:32 of Lip/Tongue/Throat Review of Systems Review of Systems Narrative Review of Systems: General appearance: NO weight change, NO fatigue, NO weakness, NO fever, NO chills, NO night sweats, No cough Skin: NO rash, NO itching, NO sores, NO moles HEENT: NO Trauma, NO nausea, NO vomiting, NO visual changes, NO blurry vision, NO double vision, NO tinnitus, NO vertigo, NO ear discharge, NO rhinorrhea, NO stuffiness, NO sneezing, NO allergy, NO epistaxis. NO Hoarseness, NO sore throat, NO swollen neck. Cardiac: NO Palpitations, NO dyspnea on exertion, NO orthopnea, NO paroxysmal nocturnal dyspnea, NO edema Respiratory: NO Shortness of Breath, NO Wheezing, NO Cough, NO Sputum, NO hemoptysis GI:NO appetite, NO nausea, NO vomiting, NO dysphagia, NO changes in bowel frequency, NO stool color, NO diarrhea, NO constipation, NO hemetemesis, NO hemorrhoids, NO melena, NO hematechezia, NO abdominal pain, NO jaundice Renal: NO frequency, NO hesitancy, NO urgency, NO hematuria, NO nocturia, NO incontinence, concern that her nephrostomy tube is not draining and needs to be removed, following urology. MSK: NO muscle weakness, NO gout, NO arthritis, NO muscle stiffness Neuro: NO headaches, NO tremors, NO weakness, NO paralysis, NO seizures, NO loss of consciousness, NO numbness. Hem: NO anemia, NO easy bruising/bleeding, NO petechiae, NO purpura Endo: NO heat/cold intolerance, NO excessive sweating, NO polyuria, NO polydipsia, NO polyphagia, NO thyroid problems, NO diabetes Pysch: NO mood, NO anxiety, NO depression Course Quality Measures none Orders Category Date Time Status CT abdomen pelvis wo con Stat Exams 05/15/25 08:51 Ordered Blood Culture (Lab) Stat Lab 05/15/25 08:56 Received CBC Stat Lab 05/15/25 09:01 Completed CMP [Comprehensive Metabolic Panel] Stat Lab 05/15/25 09:01 Completed HCG Qualitative,Urine Stat Lab 05/15/25 09:50 Completed Lactate (Lactic Acid) Stat Lab 05/15/25 09:01 Completed Lipase Stat Lab 05/15/25 09:01 Completed Procalcitonin Stat Lab 05/15/25 09:01 Completed UA [Urinalysis] Stat Lab 05/15/25 09:50 Completed Urine Culture Stat Lab 05/15/25 09:50 Received HYDROcodone*/APAP 5/325 [[place] 5/325] Med 05/15/25 09:53 Discontinued 1 tab PO X1 ONE Ketorolac Inj [Toradol Inj] Med 05/15/25 08:51 Discontinued 30 mg IM X1 ONE Ondansetron Odt [Zofran Odt] Med 05/15/25 09:03 Discontinued 4 mg PO X1 ONE Vital Signs Vital signs: Vital Signs Temperature 97.6 F 05/15/25 08:43 Pulse Rate 79 05/15/25 08:43 Respiratory Rate 18 05/15/25 08:43 Blood Pressure 128/69 05/15/25 08:43 Pulse Oximetry (%) 98 05/15/25 08:43 Oxygen Delivery Method Room Air 05/15/25 08:43 Urogenital - Female Patient data External records reviewed:: [facility] previous records Clinical information provided by:: patient Social determinants that could affect healthcare access:: none Patient has the following chronic illnesses:: Nephrostomy tube How is presenting disease/condition affected by chronic disease/condition?: exacerbated by (nephrostomy tube ) Evaluation data The following diagnostics were reviewed and interpreted by me:: lab results Lab and/or radiology exams considered but not ordered:: none Interpretation Summary: CBC, CMP within normal limits and vitals signs within normal limts. Medications / Prescriptions Medications or Prescriptions considered but not ordered:: none Medication administrations:: Medication Administration History Discontinued Medications Hydrocodone Bitart/Acetaminophen (Hydrocodone/Apap 5/325 Tablet) 1 tab PO X1 ONE Stop: 05/15/25 09:54 Ketorolac Tromethamine (Ketorolac Inj 60 Mg/2 Ml Vial) 30 mg IM X1 ONE Stop: 05/15/25 08:52 Last Admin: 05/15/25 09:21 Dose: 30 mg Documented By: BY Ondansetron HCl (Ondansetron Odt 4 Mg Tabrap) 4 mg PO X1 ONE; Protocol Stop: 05/15/25 09:04 Last Admin: 05/15/25 09:21 Dose: 4 mg Documented By: BY as above Consultations Consultation(s) initiated? (list below): No Diagnosis Urogenital Female Differential Diagnosis: urinary tract infection, cystitis and other Most likely diagnosis given after review of the tests above:: UTI Admission Indicated Admission indicated?: not indicated Admission Request Was there a request for admission?: No Disposition Plan Disposition Plan: Discharge Discharge Attestation Discharge Attestation: The patient and all family members were given an opportunity to ask questions and understood the discharge instructions. Discharge instructions specifically effects, indications for sooner follow up or return to the emergency department, and the expected course of current diagnosis. Patient condition: Stable Discharge Plan Plan Patient Disposition: HOME (Self Care) Patient condition on transfer: Stable Health Concerns: Instructions -Please follow up with your primary care provider or urologist. -Please have your urologist manage your nephrostomy tube as it is still draining well. -Please continue to take all your medication as prescribed. -Please follow up with your primary care provider within one week of discharge -If your symptoms worsen,please seek immediate medical attention and return to your nearest emergency room -If you do not have a primary care provider, you may follow up at the [facility] at [address], [place] [address], Prescriptions/Referrals Prescriptions/Med Rec: New nitrofurantoin macrocrystal 100 mg capsule 100 mg PO BID 5 Days Qty: 10 0RF Rx Instructions: must administer with a meal/food Continued latanoprost 0.005 % drops 1 drp OPHTHALMIC (EYE) HS Patient Comments: INSTILL ONE DROP IN EACH EYE AT BEDTIME Rx Instructions: 1 drop in each eye tizanidine 2 mg tablet 2 mg PO HS Patient Comments: TAKE 1 TO 2 TABLETS BY MOUTH EVERY DAY AT BED TIME Rx Instructions: take 1-2 tablets hydrocodone-acetaminophen 10-325 mg tablet 1 tab PO BID Patient Comments: TAKE ONE TABLET BY MOUTH TWICE DAILY NEEDED FOR PAIN magnesium oxide 400 mg (241.3 mg magnesium) tablet 200 mg PO BID Patient Comments: TAKE 1/2 TABLET BY MOUTH TWICE DAILY Rx Instructions: take 1/2 tablet twice a day tamsulosin 0.4 mg capsule 0.4 mg PO QDAY Patient Comments: TAKE ONE CAPSULE BY MOUTH EVERY DAY FOR PROSTATE Combivent Respimat 20-100 mcg/actuation mist 1 puff INHALATION Q6H diazepam 5 mg tablet 5 mg PO TID PRN (Reason: muscle spasm) Qty: 9 0RF ondansetron 4 mg tablet,disintegrating 4 mg PO Q8H PRN (Reason: nausea and vomiting) Qty: 10 0RF prednisone 50 mg tablet 50 mg PO QDAY Qty: 3 0RF albuterol sulfate 90 mcg/actuation HFA aerosol inhaler 2 puff inhalation Q6H PRN (Reason: shortness of breath or wheezing) Qty: 8.5 0RF ibuprofen 800 mg tablet 800 mg PO TID PRN (Reason: pain) Qty: 30 0RF fluconazole 150 mg tablet 150 mg PO Q3D Qty: 2 0RF Discontinued meloxicam 15 mg tablet 15 mg PO QDAY Patient Comments: TAKE ONE TABLET BY MOUTH EVERY DAY WITH FOOD FOR ARTHRITIS FOR INFLAMMATION ketorolac 10 mg tablet 10 mg PO Q6HR Patient Comments: TAKE ONE TABLET BY MOUTH EVERY 6 HOURS NEEDED FOR 5 DAYS ondansetron 4 mg tablet,disintegrating 4 mg PO Q4H Rx Instructions: every 4-6 hours doxycycline hyclate 100 mg capsule 100 mg PO BID Qty: 14 0RF acetaminophen-codeine 300-30 mg tablet 2 tab PO Q8H MDD 6 PRN (Reason: pain) Qty: 10 0RF meloxicam 7.5 mg tablet 7.5 mg PO QDAY Qty: 10 0RF Referrals: Lane Carcamo MD [Primary Care Provider, Family Practice] - In 1 week Problem List Clinical Impression: History of nephrostomy Patient/Caregiver Discharge Instructions Print Language: Malagasy Stand Alone Forms: Carmen Award Info., Patient Portal Info Letter
[2025-05-15 10:13] LABS: Collection Type, Urine Clean Catch
[2025-05-15 10:27] LABS: HCG Qualitative,Urine Negative
[2025-05-15 10:32] LABS: Bacteria,Urine 3+; Bilirubin,Urine Negative (Negative); Blood,Urine Negative (Negative); Clarity,Urine Hazy (Clear/Hazy); Color,Urine Yellow (Lt Yel-Yel); Glucose, Urine Negative (Negative); Ketones,Urine Negative (Negative); Leukocyte Esterase,Urine Positive (Negative); Nitrite,Urine Negative (Negative); PH,Urine 6.5 (5.0-7.0); Protein,Urine Negative (Neg - Trace); RBC,Urine 6 /hpf (0-3); Specific Gravity,Urine 1.020 (1.001-1.035); Squamous Epithelial Cell,Urine 8 /hpf (0-5); Urobilinogen,Urine Negative mg/dL (0.0-1.0); WBC,Urine 8 /hpf (0-5)
== END 2025-05-15 10:24 | disposition home or self-care (01) ==
PROVIDERS: Nurse Practitioner Family; Emergency Provider Emergency Medicine; PCP Family Medicine
DX: N12 Tubulo-interstitial nephritis, not specified as acute or chronic (principal)
CPT/HCPCS: 36415; 80053; 81001; 81025; 83605; 83690; 84145; 85025; 87040; 87086; 96372; 99282; J1885; Q0162

== ENCOUNTER 2025-05-30 08:09 | Emergency (ER) | payer MEDICAID, SELFPAY ==
[2025-05-30 08:20] VITALS: BP 108/73; PULSE 83; RESP 18; TEMP 36.6; O2SAT 99; BMI 27.1
--- NOTE | 2025-05-30 08:24 | PD.EDBACK ---
ED Back Injury Pain RME/HPI General Chief Complaint: Fall Stated Complaint: FALL, PAIN R) FLANK/SIDE/SHOULDER Time Seen by Provider: 05/30/25 08:18 Source: patient Arrival date/time: 05/30/25 08:09 49-year-old female with no known medical history presents to the emergency room with a chief complaint of right-sided flank pain and hip pain after a ground-level fall that occurred this morning. Patient recently had stents put into place in her right ureters Mode of arrival: ambulatory Limitations: no limitations Related Data Home Medications ?Medication ?Instructions ?Recorded ?Confirmed hydrocodone 10 mg-acetaminophen 1 tab PO BID 08/21/21 10/20/24 325 mg tablet ipratropium 20 mcg-albuterol 100 1 puff inhalation Q6H 08/21/21 10/20/24 mcg/actuation mist for inhalation (Combivent Respimat) latanoprost 0.005 % eye drops 1 drp ophthalmic (eye) HS 08/21/21 10/20/24 magnesium oxide 400 mg (241.3 mg 200 mg PO BID 08/21/21 10/20/24 magnesium) tablet tamsulosin 0.4 mg capsule 0.4 mg PO QDAY 08/21/21 10/20/24 tizanidine 2 mg tablet 2 mg PO HS 08/21/21 10/20/24 Previous Rx's ?Medication ?Instructions ?Recorded diazepam 5 mg tablet 5 mg PO TID PRN muscle spasm #9 08/21/21 tabs ondansetron 4 mg disintegrating 4 mg PO Q8H PRN nausea and 05/22/22 tablet vomiting #10 tabs fluconazole 150 mg tablet 150 mg PO Q3D 2 doses #2 tabs 08/03/24 ibuprofen 800 mg tablet 800 mg PO TID PRN pain #30 tabs 08/03/24 albuterol sulfate 90 mcg/actuation 2 puff inhalation Q6H PRN 09/14/24 aerosol inhaler shortness of breath or wheezing #8.5 grams prednisone 50 mg tablet 50 mg PO QDAY #3 tabs 09/14/24 ibuprofen 800 mg tablet 800 mg PO Q8H #30 tabs 05/30/25 Allergies Allergy/AdvReac Type Severity Reaction Status Date / Time amoxicillin Allergy Severe Swelling Verified 05/30/25 08:12 of Lip/Tongue/Throat erythromycin base Allergy Severe Swelling Verified 05/30/25 08:12 of Lip/Tongue/Throat Penicillins Allergy Severe Swelling Verified 05/30/25 08:12 of Lip/Tongue/Throat Review of Systems Review of Systems Systems Reviewed: All systems reviewed, normal except as documented Constitutional Constitutional: Reports system reviewed and no additional complaints, except as documented, Denies fatigue, Denies fever(s), Denies headache(s) and Denies weakness Eyes Eyes: Reports system reviewed and no additional complaints, except as documented, Denies blurry vision and Denies change in vision ENT Ears, Nose, Mouth, and Throat: Reports system reviewed and no additional complaints, except as documented, Denies otalgia, Denies headache(s), Denies nasal congestion, Denies throat swelling and Denies vertigo Cardiovascular Cardiovascular: Reports system reviewed and no additional complaints, except as documented, Denies chest pain, Denies dyspnea and Denies dyspnea on exertion Respiratory Respiratory: Reports system reviewed and no additional complaints, except as documented, Denies chest congestion, Denies cough, Denies dyspnea, Denies dyspnea on exertion and Denies wheezing Gastrointestinal Gastrointestinal: Reports system reviewed and no additional complaints, except as documented, Denies abdominal pain, Denies cramping, Denies nausea and Denies vomiting Genitourinary Genitourinary: Reports system reviewed and no additional complaints, except as documented Musculoskeletal Musculoskeletal: Reports system reviewed and no additional complaints, except as documented and Denies back pain Integumentary/Breasts Skin/Breast: Reports system reviewed and no additional complaints, except as documented and Denies wounds Neurologic Neurologic: Reports system reviewed and no additional complaints, except as documented, Denies confusion, Denies headache(s), Denies lack of coordination, Denies vertigo and Denies weakness Psychiatric Psychiatric: Reports system reviewed and no additional complaints, except as documented, Denies anxiety, Denies confusion, Denies depression, Denies paranoia, Denies suicidal ideation and Denies tactile hallucinations Endocrine Endocrine: Reports system reviewed and no additional complaints, except as documented and Denies fatigue Hematologic/Lymphatic Hematologic/Lymphatic: Reports system reviewed and no additional complaints, except as documented and Denies lymphadenopathy Allergic/Immunologic Allergic/Immunologic: Reports system reviewed and no additional complaints, except as documented, Denies throat swelling, Denies urticaria and Denies wheezing ED Exam General Limitations: Present no limitations General appearance: Present alert and in no apparent distress Head Head exam: Present atraumatic Eye Eye exam: Present normal appearance, PERRL and EOMI ENT ENT exam: Present normal exam, normal oropharynx and mucous membranes moist Neck Neck exam: Present normal inspection, full ROM and trachea midline Chest Chest inspection: Present normal inspection and symmetric chest wall rise Respiratory Respiratory exam: Present normal lung sounds bilaterally Cardiovascular Cardiovascular exam: Present regular rate, normal rhythm and normal heart sounds Abdominal Exam Abdominal exam: Present soft and normal bowel sounds Extremities Exam Extremities exam: Present normal inspection and full ROM Back Exam Back exam: Present normal inspection, full ROM, tenderness, CVA tenderness (R) and vertebral tenderness; Absent CVA tenderness (L) Neurological Exam Neurological exam: Present alert, oriented X3 and CN II-XII intact Psychiatric Psychiatric exam: Present normal affect and normal mood Skin Skin exam: Present warm, dry, intact and normal color Course Quality Measures none Orders Category Date Time Status CT abdomen pelvis wo con Stat Exams 05/30/25 08:30 Completed CBC Stat Lab 05/30/25 08:43 Completed CMP [Comprehensive Metabolic Panel] Stat Lab 05/30/25 08:43 Completed HCG Qualitative,Urine Stat Lab 05/30/25 08:50 Completed Lipase Stat Lab 05/30/25 08:43 Completed UA [Urinalysis] Stat Lab 05/30/25 08:50 Completed Urine Culture Stat Lab 05/30/25 08:50 Received Ketorolac Inj [Toradol Inj] Med 05/30/25 08:31 Discontinued 30 mg IM X1 ONE Vital Signs Vital signs: Vital Signs Temperature 97.8 F 05/30/25 08:20 Pulse Rate 83 05/30/25 08:20 Respiratory Rate 18 05/30/25 08:20 Blood Pressure 108/73 05/30/25 08:20 Pulse Oximetry (%) 99 05/30/25 08:20 Oxygen Delivery Method Room Air 05/30/25 08:20 Back Pain / Injury MDM Narrative MDM Narrative:: 49-year-old female with no known medical history presents to the emergency room with a chief complaint of right-sided flank pain and hip pain after a ground-level fall that occurred this morning. Patient recently had stents put into place in her right ureters Patient is hemodynamically stable and in no apparent distress Physical examination shows right CVA tenderness with palpation. Patient states she recently had a fall and the pain began right after the fall. Due to her recent surgical history of having ureters the patient decided to check into the emergency room to make sure that there is no issues. A CT of the abdomen and pelvis was completed and there is no obstruction there is a stent in satisfactory position. The patient has a follow-up appointment coming up with her urologist. There is no fevers there is no elevated white count. The patient is nontoxic-appearing. The patient is aware that there is a 9 mm stone. Patient states that in her follow-up appointment the plan is to remove this stone. Patient was discharged and educated to follow-up with primary care provider in the next 24 to 48 hours and return to the emergency room for any evidence of worsening signs or symptoms Patient data External records reviewed:: [facility] previous records Clinical information provided by:: patient Social determinants that could affect healthcare access:: none Patient has the following chronic illnesses:: No chronic illness How is presenting disease/condition affected by chronic disease/condition?: no chronic disease Evaluation data The following diagnostics were reviewed and interpreted by me:: lab results and radiology exam(s) Lab and/or radiology exams considered but not ordered:: Labs and radiology exams considered and ordered Interpretation Summary: CT abdomen and pelvis-Findings: No focal liver or splenic lesions Absent gallbladder No pancreatic or adrenal mass. Right ureteral stent in satisfactory position, 9 mm calculus adjacent to the upper portion of the stent No significant hydronephrosis Possible 3 mm calculus adjacent to the distal portion of the stent Aorta normal size No bowel obstruction Small fat-containing inguinal hernia Normal appendix No diverticulitis Retroverted uterus with irregular fundus IMPRESSION: Right ureteral stent satisfactory position 9 mm calculus adjacent to the upper portion of the stent and possible 3 mm calculus adjacent to the distal portion of the right stent Normal appendix Fundus of the uterus is irregular, consider elective pelvic sonography follow-up Medications / Prescriptions Medications or Prescriptions considered but not ordered:: Medication given Medication administrations:: Medication Administration History Discontinued Medications Ketorolac Tromethamine (Ketorolac Inj 60 Mg/2 Ml Vial) 30 mg IM X1 ONE Stop: 05/30/25 08:32 Last Admin: 05/30/25 08:39 Dose: 30 mg Documented By: DO Medication given Consultations Consultation(s) initiated? (list below): No Diagnosis Differential diagnosis back pain/injury: strain of lumbar region, pyelonephritis and other (Right flank pain) Most likely diagnosis given after review of the tests above:: Right flank pain Admission Indicated Admission indicated?: not indicated Admission Request Was there a request for admission?: No Disposition Plan Disposition Plan: Discharge Discharge Attestation Discharge Attestation: The patient and all family members were given an opportunity to ask questions and understood the discharge instructions. Discharge instructions specifically effects, indications for sooner follow up or return to the emergency department, and the expected course of current diagnosis. Patient condition: Stable Discharge Plan Plan Patient Disposition: HOME (Self Care) Discharge Disposition comment: Stable Prescriptions/Referrals Prescriptions/Med Rec: New ibuprofen 800 mg tablet 800 mg PO Q8H Qty: 30 0RF No Action latanoprost 0.005 % drops 1 drp OPHTHALMIC (EYE) HS Patient Comments: INSTILL ONE DROP IN EACH EYE AT BEDTIME Rx Instructions: 1 drop in each eye tizanidine 2 mg tablet 2 mg PO HS Patient Comments: TAKE 1 TO 2 TABLETS BY MOUTH EVERY DAY AT BED TIME Rx Instructions: take 1-2 tablets hydrocodone-acetaminophen 10-325 mg tablet 1 tab PO BID Patient Comments: TAKE ONE TABLET BY MOUTH TWICE DAILY NEEDED FOR PAIN magnesium oxide 400 mg (241.3 mg magnesium) tablet 200 mg PO BID Patient Comments: TAKE 1/2 TABLET BY MOUTH TWICE DAILY Rx Instructions: take 1/2 tablet twice a day tamsulosin 0.4 mg capsule 0.4 mg PO QDAY Patient Comments: TAKE ONE CAPSULE BY MOUTH EVERY DAY FOR PROSTATE Combivent Respimat 20-100 mcg/actuation mist 1 puff INHALATION Q6H diazepam 5 mg tablet 5 mg PO TID PRN (Reason: muscle spasm) Qty: 9 0RF ondansetron 4 mg tablet,disintegrating 4 mg PO Q8H PRN (Reason: nausea and vomiting) Qty: 10 0RF prednisone 50 mg tablet 50 mg PO QDAY Qty: 3 0RF albuterol sulfate 90 mcg/actuation HFA aerosol inhaler 2 puff inhalation Q6H PRN (Reason: shortness of breath or wheezing) Qty: 8.5 0RF ibuprofen 800 mg tablet 800 mg PO TID PRN (Reason: pain) Qty: 30 0RF fluconazole 150 mg tablet 150 mg PO Q3D Qty: 2 0RF Referrals: Lane Carcamo MD [Primary Care Provider, Family Practice] - In 1 week Problem List Clinical Impression: Acute right flank pain Patient/Caregiver Discharge Instructions Education Materials: ED Pain, Acute, Uncertain Cause Additional Instructions: Please follow-up with your urologist in the next 24 to 48 hours Medication was sent to your pharmacy please pick it up and take it as indicated For any evidence of worsening signs or symptoms return to the emergency room immediately Print Language: Sami Stand Alone Forms: Carmen Award Info., Work/School Release, Patient Portal Info Letter PA/[employer]INEER Supervising Physician PA/S[employer] ENGINEER Supervising Physician: Dr. Garsia
--- NOTE | 2025-05-30 08:30 | XR_ITS ---
Examination: CT abdomen and pelvis without contrast. Coronal 3-D reconstructions. Sagittal 2-D reconstructions. Date and time of exam: May 30, 2025, 10:00 a.m., comparison August 03, 2024 INDICATIONS: Patient fell today with injury to the abdomen, with right-sided abdominal pain CTDI: vol (mGy): 9.40 DLP: (mGycm): 544 Technique: Axial images of the abdomen have been obtained, 3 mm slice thickness Intravenous contrast material has not been administered. Low dose protocols were performed. One or more of the following dose reduction techniques were used; automated exposure control, adjustment of the mA and/or KV according to patient size, use of iterative reconstruction technique. Findings: No focal liver or splenic lesions Absent gallbladder No pancreatic or adrenal mass. Right ureteral stent in satisfactory position, 9 mm calculus adjacent to the upper portion of the stent No significant hydronephrosis Possible 3 mm calculus adjacent to the distal portion of the stent Aorta normal size No bowel obstruction Small fat-containing inguinal hernia Normal appendix No diverticulitis Retroverted uterus with irregular fundus IMPRESSION: Right ureteral stent satisfactory position 9 mm calculus adjacent to the upper portion of the stent and possible 3 mm calculus adjacent to the distal portion of the right stent Normal appendix Fundus of the uterus is irregular, consider elective pelvic sonography follow-up
[2025-05-30] MEDS: KETOROLAC INJ 60 MG/2 ML VIAL 30 MG IM (08:39)
[2025-05-30 08:49] LABS: Basophils # (Auto) 0.0 Thou/mm3 (0.0-0.2); Basophils % (Auto) 1 % (0-2.5); Eosinophils # (Auto) 0.6 Thou/mm3 (0.0-0.5); Eosinophils % (Auto) 7 % (0-10); Hematocrit 41.5 % (36.0-46.0); Hemoglobin 13.6 g/dL (12.0-16.0); Immature Granulocytes Auto 0.03 Thou/mm3 (0.00-0.00); Lymphocytes # (Auto) 1.7 Thou/mm3 (1.0-4.8); Lymphocytes % (Auto) 20 % (10-50); Mean Corpuscular HGB Conc 32.8 g/dl (31.0-37.0); Mean Corpuscular Hemoglobin 30.2 pg (25.0-35.0); Mean Corpuscular Volume 92 fL (80-100); Monocytes # (Auto) 0.8 Thou/mm3 (0.0-0.8); Monocytes % (Auto) 9 % (0-12); Neutrophils # (Auto) 5.5 Thou/mm3 (1.8-7.7); Neutrophils % (Auto) 63 % (37-80); Nucleated Red Blood Cell # 0.00 Thou/mm3 (0.00-0.00); Nucleated Red Blood Cell % 0 /100 WBC (0); Platelet Count 335 Thou/mm3 (140-440); RDW Standard Deviation 41.6 fL (36.4-46.3); Red Blood Count 4.51 Miln/mm3 (4.00-5.20); White Blood Count 8.7 Thou/mm3 (3.6-11.0)
[2025-05-30 09:08] LABS: Alanine Aminotransferase 13 U/L (10-49); Albumin, Serum 4.5 gm/dL (3.5-5.0); Albumin/Globulin Ratio 1.9 (1.2-2.2); Alkaline Phosphatase 74 U/L (46-116); Anion Gap 6 (7-16); Aspartate Amino Transferase 13 U/L (0-34); BUN/Creatinine Ratio 9 Ratio (12-20); Bilirubin,Total 0.2 mg/dL (0.3-1.2); Blood Urea Nitrogen 9 mg/dL (9-23); Calcium 9.2 mg/dL (8.3-10.6); Calcium (Corrected) 9.2 mg/dL (8.5-10.1); Carbon Dioxide 29.9 mMol/L (20.0-31.0); Chloride 106 mMol/L (98-107); Creatinine (Component) 1.0 mg/dL (0.6-1.3); Estimated Creatinine Clearance 88.0 mL/min (>60); Globulin 2.4 gm/dL (2.3-3.5); Glucose 86 mg/dL (74-106); Lipase 24 U/L (12-53); Osmolality,Calculated 280 (275-295); Potassium 4.0 mMol/L (3.4-5.1); Sodium 142 mMol/L (136-145); Total Protein 6.9 gm/dL (5.7-8.2); eGFR > 60 See Note
[2025-05-30 09:12] LABS: Collection Type, Urine Clean Catch
[2025-05-30 09:21] LABS: HCG Qualitative,Urine Negative
[2025-05-30 09:34] LABS: Bacteria,Urine 3+; Bilirubin,Urine Negative (Negative); Blood,Urine 3+ (Negative); Color,Urine Colorless (Lt Yel-Yel); Glucose, Urine Negative (Negative); Ketones,Urine Negative (Negative); Leukocyte Esterase,Urine Positive (Negative); Nitrite,Urine Negative (Negative); PH,Urine 6.5 (5.0-7.0); Protein,Urine 2+ (Neg - Trace); RBC,Urine 568 /hpf (0-3); Specific Gravity,Urine 1.013 (1.001-1.035); Squamous Epithelial Cell,Urine 4 /hpf (0-5); Urobilinogen,Urine Negative mg/dL (0.0-1.0); WBC,Urine 18 /hpf (0-5)
[2025-05-30 10:03] LABS: Clarity,Urine Hazy (Clear/Hazy)
== END 2025-05-30 11:32 | disposition home or self-care (01) ==
PROVIDERS: Nurse Practitioner Family; Emergency Provider Emergency Medicine; PCP Family Medicine
DX: R10.A1 Flank pain, right side (principal); K40.90 Unilateral inguinal hernia, without obstruction or gangrene, not specified as recurrent; N85.4 Malposition of uterus
CPT/HCPCS: 36415; 74176; 80053; 81001; 81025; 83690; 85025; 87086; 96372; 99283; J1885